=== PATIENT | female | born 1995 | race American Indian/Alaskan Native ===

== ENCOUNTER 2017-02-27 15:53 | Emergency (ER) | payer OTHER ==
[2017-02-27 17:05] VITALS: BP 155/103
--- NOTE | 2017-02-27 20:37 | Emergency Department Report ---
ED Female HPI - General Chief complaint: Urogenital-Female Stated complaint: VAG DISCHARGE / DISCOMFORT/VAG PAIN Time Seen by Provider: 02/27/17 19:57 Source: patient Mode of arrival: Ambulatory Limitations: No Limitations - History of Present Illness Initial comments: PT c/o vaginal lesions x 5 days. PT states three weeks ago she was seen in an ED in [place] for vaginal pain and discharge and she was dx with herpes. PT states she was given medication that helped, acyclovir, but her symptoms came back after she started her cycle. PT states her symptoms are not as bad as previous and she is not having vaginal discharge. PT states she has been recently stressed due to [facility], and recent dx of herpes, and subsequent break up with boyfriend of 8 years. PT states she has tried topical powder, tea bags and ice but no improvement. PT denies any unprotected sex since her dx of herpes. PT states she recently moved to [place] for school and has not established primary care. PT has a hx of DM and states she has her insulin. MD Complaint: possible STD Onset/Timin -: Gradual, days(s) Location: labia Severity: severe Severity scale (0 -10): 10 Quality: sharp, burning Consistency: constant Improves with: none Worsens with: urination, movement, bathing Are you Now?: No Last Menstrual Period: 02/17/17 EDC: 11/24/17 Associated Symptoms: denies other symptoms. denies: vaginal discharge, vaginal bleeding, abdominal pain, nausea/vomiting, fever/chills, dysuria - Related Data Sexually active: Yes Previous Rx's Medication Instructions Recorded Last Taken Type Acyclovir [Zovirax Cap] 800 mg PO 5XD 7 Days 02/27/17 Unknown Rx traMADol [Ultram] 50 mg PO Q6HR PRN #12 tablet 02/27/17 Unknown Rx Allergies Allergy/AdvReac Type Severity Reaction Status Date / Time No Known Allergies Allergy Unverified 02/27/17 16:58 ED Review of Systems ROS: Stated complaint: VAG DISCHARGE / DISCOMFORT/VAG PAIN Other details as noted in HPI Comment: All other systems reviewed and negative Constitutional: denies: chills, fever Endocrine: denies: increased urine Gastrointestinal: denies: abdominal pain, nausea, vomiting Genitourinary: other (painful rash ). denies: dysuria, discharge Skin: lesions ED Past Medical Hx - Past Medical History Previous Medical History?: Yes Hx Diabetes: Yes - Surgical History Past Surgical History?: No - Social History Smoking Status: Never Smoker Substance Use Type: Alcohol, Prescribed - Medications Home Medications: Home Medications Medication Instructions Recorded Confirmed Last Taken Type Acyclovir [Zovirax Cap] 800 mg PO 5XD 7 Days 02/27/17 Unknown Rx traMADol [Ultram] 50 mg PO Q6HR PRN #12 tablet 02/27/17 Unknown Rx ED Physical Exam - General Limitations: No Limitations General appearance: alert, in no apparent distress - Head Head exam: Present: atraumatic, normocephalic, normal inspection - Eye Eye exam: Present: normal appearance, PERRL, EOMI. Absent: conjunctival injection - ENT ENT exam: Present: normal exam, mucous membranes moist, other (with piercing ) - Neck Neck exam: Present: normal inspection, full ROM - Respiratory Respiratory exam: Present: normal lung sounds bilaterally. Absent: respiratory distress, chest wall tenderness - Cardiovascular Cardiovascular Exam: Present: regular rate, normal rhythm - GI/Abdominal GI/Abdominal exam: Present: soft. Absent: tenderness - External exam: Present: lesions, other (vesicles noted on external exam). Absent: erythema, bleeding Speculum exam: Present: other (deferred) - Extremities Exam Extremities exam: Present: normal inspection, full ROM - Back Exam Back exam: Present: normal inspection, full ROM - Neurological Exam Neurological exam: Present: alert, oriented X3 - Psychiatric Psychiatric exam: Present: normal affect, normal mood - Skin Skin exam: Present: warm, dry ED Course Vital Signs 02/27/17 16:59 Temperature 98.6 F Pulse Rate 107 H Respiratory 20 Rate Blood Pressure 155/103 O2 Sat by Pulse 100 Oximetry - Reevaluation(s) Reevaluation #1: 02/27/17 20:46 PT aware of dx. PT aware she will need to take her insulin as prescribed. PT aware she will need to follow up with PCP for bp and bg recheck - Pulse Oximetry Interpretation Digit-Finger Initial Pulse Oximetry Readin Actions Taken: none ED Medical Decision Making - Differential Diagnosis herpes, pelvic pain, hyperglycemia Critical Care Time: No Critical care attestation.: If time is entered above; I have spent that time in minutes in the direct care of this critically ill patient, excluding procedure time. ED Disposition Clinical Impression: Herpes genitalis in women Disposition: DISCHARGED TO HOME OR SELFCARE Is pt being admited?: No Does the pt Need Aspirin: No Condition: Stable Instructions: Genital Herpes Simplex (ED) Additional Instructions: No driving or ETOH after taking Ultram Follow up with PCP in 3-5 days for bp recheck Continue taking your insulin as prescribed Prescriptions: Acyclovir [Zovirax Cap] 800 mg PO 5XD 7 Days traMADol [Ultram] 50 mg PO Q6HR PRN #12 tablet PRN Reason: Pain Referrals: PRIMARY CARE, [Primary Care Provider] - 3-5 Days FLORY MARIE MD [Staff Physician] - 3-5 Days [facility] [Outside] - 3-5 Days [facility] [Outside] - 3-5 Days [facility] [Outside] - 3-5 Days [facility] [Provider Group] - 3-5 Days Forms: Work/School Release Form(ED) Time of Disposition: 20:51
== END 2017-02-27 21:00 | disposition home or self-care (01) ==
LOC: ED 15:53
DX: A60.09 Herpesviral infection of other urogenital tract (principal); E11.9 Type 2 diabetes mellitus without complications
CPT/HCPCS: 82962; 99282

== ENCOUNTER 2017-07-23 16:24 | Emergency (ER) | payer SELFPAY ==
--- NOTE | 2017-07-23 16:52 | Emergency Department Report ---
Chief Complaint: Nausea/Vomiting/Diarrhea Stated Complaint: NAUSEA/VOMIT X 3 WKS Time Seen by Provider: 07/23/17 16:50 - HPI History of Present Illness: patient is a 22 y/o female who with h/o diabetes who presents due to nausea, vomiting x 3 weeks. Patient denies any abdominal pain, fever or chills. - ROS Review of Systems: no fever, no chills, no abdominal pain - Exam Vital Signs: Vital Signs 07/23/17 16:47 Temperature 98.2 F Pulse Rate 76 Respiratory 16 Rate Blood Pressure 138/78 O2 Sat by Pulse 100 Oximetry Physical Exam: alert and oriented x 3, NAD MSE screening note: Focused history and physical exam performed. Due to findings the following was ordered: cbc, CMP, URINALYSIS, UPT, LIPASE ED Disposition for MSE Condition: Stable
[2017-07-23 17:32] LABS: Eosinophils % (Auto) 0.7 % (0.0-4.3)
[2017-07-23 17:36] LABS: Hematocrit 28.1 % (30.3-42.9); Mean Corpuscular Volume 65 fl (79-97); Red Blood Count 4.31 M/mm3 (3.65-5.03); White Blood Count 9.4 K/mm3 (4.5-11.0)
[2017-07-23 17:37] LABS: Mean Corpuscular HGB Conc 29 % (30-34); Mean Corpuscular Hemoglobin 19 pg (28-32); Platelet Count 488 K/mm3 (140-440); Red Cell Distribution Width 21.5 % (13.2-15.2)
[2017-07-23 17:38] LABS: Basophils % (Auto) 0.7 % (0.0-1.8)
[2017-07-23 17:40] LABS: Alanine Aminotransferase 9 units/L (7-56); Albumin 3.8 g/dL (3.9-5); Alkaline Phosphatase 68 units/L (35-129); Anion Gap 17 mmol/L; BUN/Creatinine Ratio 10; Bilirubin,Total < 0.20 mg/dL (0.1-1.2); Blood Urea Nitrogen 6 mg/dL (7-17); Calcium 8.8 mg/dL (8.4-10.2); Carbon Dioxide 28 mmol/L (22-30); Chloride 95.6 mmol/L (98-107); Glucose 278 mg/dL (65-100); Lipase 34 units/L (13-60); Potassium 3.5 mmol/L (3.6-5.0); Sodium 137 mmol/L (137-145); Total Protein 7.8 g/dL (6.3-8.2)
[2017-07-23 18:31] LABS: Bilirubin,Urine NEG (Negative); Blood,Urine NEG (Negative); Ketones,Urine NEG (Negative); Leukocyte Esterase,Urine LG (Negative); Mucus,Urine FEW /HPF; Nitrite,Urine NEG (Negative); Protein,Urine <15 mg/dL mg/dL (Negative); Urobilinogen,Urine < 2.0 mg/dL (<2.0)
[2017-07-23 21:57] VITALS: BP 144/87
[2017-07-23] MEDS ORDERED: K-DUR PO ONE (22:11)
[2017-07-23] MEDS ORDERED: ZOFRAN ODT PO ONE (22:11)
--- NOTE | 2017-07-23 22:15 | Emergency Department Report ---
ED N/V/D HPI - General Chief complaint: Nausea/Vomiting/Diarrhea Stated complaint: NAUSEA/VOMIT X 3 WKS Time Seen by Provider: 07/23/17 22:00 Source: patient Mode of arrival: Ambulatory Limitations: No Limitations - History of Present Illness Initial comments: 22-year-old female past medical history insulin dependent diabetes and no previous surgeries presented to the hospital complaints of intermittent nausea and vomiting for the past 3 weeks. On average patient vomited 3 times a day. She denies any pain, diarrhea, fever, or dysuria. She has been compliant with her insulin. She has a history of anemia and does not take iron tablets currently - Related Data Previous Rx's Medication Instructions Recorded Last Taken Type Acyclovir [Zovirax Cap] 800 mg PO 5XD 7 Days 02/27/17 Unknown Rx traMADol [Ultram] 50 mg PO Q6HR PRN #12 tablet 02/27/17 Unknown Rx Ferrous Sulfate [Feosol 325 MG tab] 325 mg PO QDAY #30 tablet 07/23/17 Unknown Rx Ondansetron [Zofran Odt] 4 mg PO Q8HR PRN #20 tab.rapdis 07/23/17 Unknown Rx Allergies Allergy/AdvReac Type Severity Reaction Status Date / Time No Known Allergies Allergy Unverified 02/27/17 16:58 ED Review of Systems ROS: Stated complaint: NAUSEA/VOMIT X 3 WKS Other details as noted in HPI Comment: All other systems reviewed and negative Other: Constitutional: No fevers chills Eyes: No eye pain visual changes ENT: No ear pain or throat pain Neck: Denies pain Respiratory: Denies cough wheezing shortness of breath Cardiovascular: Denies chest pain, palpitations, syncope GI: as per hpi : Denies dysuria Musculoskeletal: Denies back pain, joint swelling Skin: Denies rash, lesions, erythema Neurologic: Denies headache ED Past Medical Hx - Past Medical History Previous Medical History?: Yes Hx Diabetes: Yes - Surgical History Past Surgical History?: No - Social History Smoking Status: Never Smoker Substance Use Type: Alcohol - Medications Home Medications: Home Medications Medication Instructions Recorded Confirmed Last Taken Type Acyclovir [Zovirax Cap] 800 mg PO 5XD 7 Days 02/27/17 Unknown Rx traMADol [Ultram] 50 mg PO Q6HR PRN #12 tablet 02/27/17 Unknown Rx Ferrous Sulfate [Feosol 325 MG tab] 325 mg PO QDAY #30 tablet 07/23/17 Unknown Rx Ondansetron [Zofran Odt] 4 mg PO Q8HR PRN #20 tab.rapdis 07/23/17 Unknown Rx ED Physical Exam - General Limitations: No Limitations - Other Other exam information: General: No limitations, patient is alert in no acute distress Head exam: Atraumatic, normocephalic Eyes exam: Normal appearance ENT: Moist mucous membrane, normal oropharynx Neck exam: Normal inspection, full range of motion, no meningismus nontender Respiratory exam: Clear to auscultation bilateral, no wheezes, rales, crackles Cardiovascular: Normal rate and rhythm, normal heart sounds Abdomen: Soft, nondistended, and nontender, with normal bowel sounds, no rebound, or guarding Extremity: Full range of motion normal inspection no deformity Back: Normal Inspection, full range of motion, no tenderness Neurologic: Alert, oriented x3, cranial nerves intact, no motor or sensory deficit Psychiatric: normal affect, normal mood Skin: Warm, dry, intact ED Course Vital Signs 07/23/17 07/23/17 07/23/17 16:47 21:56 21:57 Temperature 98.2 F Pulse Rate 76 68 Respiratory 16 18 18 Rate Blood Pressure 138/78 Blood Pressure 144/87 [Right] O2 Sat by Pulse 100 100 100 Oximetry - Reevaluation(s) Reevaluation #1: 07/23/17 22:15 pt feeling better without treatment. tolerated snacks in the ed while waiting to be seen refuses IV treatment agrees to PO zofran and PO KCL refuses accucheck plans to take INsulin dose when she gets home. ED Medical Decision Making - Lab Data Result diagrams: 07/23/17 17:02 07/23/17 17:02 Lab Results 07/23/17 07/23/17 07/23/17 Range/Units 16:57 17:02 17:02 WBC 9.4 (4.5-11.0) K/mm3 RBC 4.31 (3.65-5.03) M/mm3 Hgb 8.0 L (10.1-14.3) gm/dl Hct 28.1 L (30.3-42.9) % MCV 65 L (79-97) fl MCH 19 L (28-32) pg MCHC 29 L (30-34) % RDW 21.5 H (13.2-15.2) % Plt Count 488 H (140-440) K/mm3 Lymph % (Auto) 33.6 (13.4-35.0) % Valley % (Auto) 6.0 (0.0-7.3) % Eos % (Auto) 0.7 (0.0-4.3) % Baso % (Auto) 0.7 (0.0-1.8) % Lymph # 3.2 (1.2-5.4) K/mm3 Valley # 0.6 (0.0-0.8) K/mm3 Eos # 0.1 (0.0-0.4) K/mm3 Baso # 0.1 (0.0-0.1) K/mm3 Seg Neutrophils % 59.0 (40.0-70.0) % Seg Neutrophils # 5.6 (1.8-7.7) K/mm3 Sodium 137 (137-145) mmol/L Potassium 3.5 L (3.6-5.0) mmol/L Chloride 95.6 L (98-107) mmol/L Carbon Dioxide 28 (22-30) mmol/L Anion Gap 17 mmol/L BUN 6 L (7-17) mg/dL Creatinine 0.6 L (0.7-1.2) mg/dL Estimated GFR > 60 ml/min BUN/Creatinine Ratio 10 % Glucose 278 H (65-100) mg/dL Calcium 8.8 (8.4-10.2) mg/dL Total Bilirubin < 0.20 (0.1-1.2) mg/dL AST 10 (5-40) units/L ALT 9 (7-56) units/L Alkaline Phosphatase 68 (35-129) units/L Total Protein 7.8 (6.3-8.2) g/dL Albumin 3.8 L (3.9-5) g/dL Albumin/Globulin Ratio 1.0 % Lipase 34 (13-60) units/L Urine Color Yellow (Yellow) Urine Turbidity Clear (Clear) Urine pH 6.0 (5.0-7.0) Ur Specific Agency 1.016 (1.003-1.030) Urine Protein <15 mg/dl (Negative) mg/dL Urine Glucose (UA) >=500 (Negative) mg/dL Urine Ketones Neg (Negative) mg/dL Urine Blood Neg (Negative) Urine Nitrite Neg (Negative) Ur Reducing Substances Not Reportable Urine Bilirubin Neg (Negative) Urine Ictotest Not Reportable Urine Urobilinogen < 2.0 (<2.0) mg/dL Ur Leukocyte Esterase Lg (Negative) Urine WBC (Auto) 5.0 (0.0-6.0) /HPF Urine RBC (Auto) 6.0 (0.0-6.0) /HPF U Epithel Cells (Auto) 6.0 (0-13.0) /HPF Urine Mucus Few /HPF Urine HCG, Qual Negative (Negative) - Medical Decision Making pt feeling better without treatment. tolerated snacks in the ed while waiting to be seen refuses IV treatment agrees to PO zofran and PO KCL refuses accucheck plans to take INsulin dose when she gets home. zofran, iron tablets for anemia, and f/u will be recommended. - Differential Diagnosis DKA, gastritis, pancreatitis, pericolic, gastroparesis Critical Care Time: No Critical care attestation.: If time is entered above; I have spent that time in minutes in the direct care of this critically ill patient, excluding procedure time. ED Disposition Clinical Impression: Intermittent vomiting, Microcytic anemia, Insulin dependent diabetes mellitus, Hypokalemia Disposition: DC-01 TO HOME OR SELFCARE Is pt being admited?: No Does the pt Need Aspirin: No Condition: Stable Instructions: Diabetes Mellitus Type 1 in Adults (ED), Acute Nausea and Vomiting (ED), Hypokalemia (ED), Anemia (ED) Additional Instructions: Take medications as prescribed. Follow-up with your primary care doctor and the GI doctor provided. Return is symptoms worsen. Iron tablets may cause constipation take stool softeners as needed. Prescriptions: Ferrous Sulfate [Feosol 325 MG tab] 325 mg PO QDAY #30 tablet Ondansetron [Zofran Odt] 4 mg PO Q8HR PRN #20 tab.rapdis PRN Reason: Nausea And Vomiting Referrals: PRIMARY CARE, [Primary Care Provider] - 3-5 Days SUZANNE JUNG MD [Staff Physician] - 3-5 Days Time of Disposition: 22:12
== END 2017-07-23 22:32 | disposition home or self-care (01) ==
LOC: ED 16:24
DX: D50.9 Iron deficiency anemia, unspecified (principal); E87.6 Hypokalemia; E11.8 Type 2 diabetes mellitus with unspecified complications; Z79.4 Long term (current) use of insulin
CPT/HCPCS: 36415; 80053; 81001; 81025; 83690; 85025; 99283; Q0162

== ENCOUNTER 2019-03-23 14:19 | Inpatient (IN) | payer OTHER ==
[2019-03-23] MEDS ORDERED: MINERAL OIL PO PRN ×2 (15:40→16:54)
[2019-03-23] MEDS ORDERED: XYLOCAINE 2% INFILTRATI ONE ×2 (15:40→16:54)
[2019-03-23 15:59] LABS: Hematocrit 34.2 % (30.3-42.9); Mean Corpuscular HGB Conc 32 % (30-34); Mean Corpuscular Volume 85 fl (79-97); Platelet Count 292 K/mm3 (140-440); Red Blood Count 4.01 M/mm3 (3.65-5.03); Red Cell Distribution Width 18.6 % (13.2-15.2)
[2019-03-23] MEDS ORDERED: LACTATED RINGERS 1,000 ML IV SCH (16:00)
[2019-03-23] MEDS ORDERED: ZOFRAN IV PRN (16:54)
[2019-03-23] MEDS ORDERED: BRETHINE SUB-Q PRN (16:54)
[2019-03-23] MEDS ORDERED: PHENERGAN PO PRN (16:54)
[2019-03-23] MEDS ORDERED: STADOL IV PRN (16:54)
[2019-03-23] MEDS ORDERED: SUBLIMAZE IV PRN (16:54)
[2019-03-23] MEDS ORDERED: BRETHINE IVP PRN (16:54)
--- NOTE | 2019-03-23 16:54 | History and Physical Report ---
History of Present Illness Date of examination: 03/23/19 Date of admission: 03/23/19 14:19 Chief complaint: via [facility] recommendations History of present illness: 24 yo EDC 05/07/19 at 33+ weeks admitted for absent End diastolic flow. She is a patietn with DM type 1 on insulin regimen. She also has cHTN on no meds. She has HSV2 aware. She alos has IUGR 5% followed by [facility]. Past History Past Medical History: no pertinent history Past Surgical History: no surgical history Family/Genetic History: none Social history: single. denies: smoking, alcohol abuse, prescription drug abuse - Obstetrical History Expected Date of Delivery: 05/07/19 Actual Gestation: 33 Week(s) 4 Day(s) : 1 Para: 0 Hx # Term Pregnancies: 0 Number of Pregnancies: 0 Spontaneous Abortions: 0 Induced : 0 Number of Living Children: 0 Medications and Allergies Allergies Allergy/AdvReac Type Severity Reaction Status Date / Time No Known Allergies Allergy Unverified 02/27/17 16:58 Home Medications Medication Instructions Recorded Confirmed Last Taken Type Acyclovir [Zovirax Cap] 800 mg PO 5XD 7 Days cap 02/27/17 Unknown Rx traMADol [Ultram] 50 mg PO Q6HR PRN #12 tablet 02/27/17 Unknown Rx Ferrous Sulfate [Feosol 325 MG tab] 325 mg PO QDAY #30 tablet 07/23/17 Unknown Rx Ondansetron [Zofran Odt] 4 mg PO Q8HR PRN #20 tab.rapdis 07/23/17 Unknown Rx Active Meds: Active Medications Ephedrine Sulfate (Ephedrine Sulfate) 10 mg IV Q2M PRN PRN Reason: Hypotension Lactated Ringer's (Lactated Ringers) 1,000 mls @ 125 mls/hr IV DIRECT WILNER Mineral Oil (Mineral Oil) 30 ml PO QHS PRN PRN Reason: Constipation Review of Systems All systems: negative - Vital Signs Vital signs: Vital Signs Pulse BP 98 H 135/99 03/23/19 14:53 03/23/19 14:53 Temp Pulse Resp BP Pulse Ox 97.0 F L 98 H 132/93 03/23/19 15:39 03/23/19 16:13 03/23/19 16:13 - Physical Exam Breasts: Positive: normal Cardiovascular: Regular rate, Normal S1 Lungs: Positive: Clear to auscultation, Normal air movement Abdomen: Positive: normal appearance, soft, normal bowel sounds. Negative: distention, tenderness, guarding Genitourinary (Female): Positive: normal external genitalia, normal perenium Vulva: both: normal Vagina: Positive: normal moisture Uterus: Positive: normal size, normal contour Anus/Rectum: Positive: normal perianal skin Extremities: Positive: normal. Negative: tenderness Deep Tendon Reflex Grade: Normal +2 - Obstetrical FHR: category 1 Uterine Contraction Pattern: Absent Uterine Tone Measurement Phase: Resting Results Result Diagrams: 03/23/19 15:42 Abnormal lab results 03/23/19 Range/Units 15:42 RDW 18.6 H (13.2-15.2) % All other labs normal. Ultrasound: report reviewed Assessment and Plan A/P 33+4 weeks IUGR DM type 1 cHTN No end diastolic flow GBS + Admit , IVF, labs Betamethasone x1 now Mag 2g for neuro protection continuous monitor Sliding scale
[2019-03-23] MEDS ORDERED: PITOCin/NS 20 UNIT/1000ML DRIP 20 UNITS/1,000 ML BAG IV SCH (17:00)
[2019-03-23] MEDS ORDERED: PITOCin/NS 30 UNIT/500ML 30 UNITS/500 ML BAG IV SCH (17:00)
[2019-03-23] MEDS ORDERED: D50W (25GM) Syringe IV PRN (17:05)
[2019-03-23] MEDS ORDERED: MAGNESIUM SULFATE 1 GM in NACL 0.9% 50 ML IV ONE (17:10)
[2019-03-23] MEDS ORDERED: CELESTONE SOLUSPAN IM SCH (18:00)
[2019-03-23] MEDS: LACTATED RINGERS 1,000 ML IV SCH (18:10)
[2019-03-23] MEDS ORDERED: MAGNESIUM SULFATE 4GM/100ML 4 GM/100 ML BAG IV ONE (18:10)
[2019-03-23] MEDS ORDERED: MAGNESIUM SULFATE 40GM/1000ML 40 GM/1,000 ML BAG IV ONE (18:30)
--- NOTE | 2019-03-23 19:30 | Consultation ---
Consult Note - Parent Education I met with parent(s) and discussed the following:: Need for NICU admission, Poss ible need for intubation and surfactant or other resp support, Temperature regulation, Head ultrasounds to evaluate IVH, Possible need for IV fluids/TPN and IV antibiotics, Possible need for umbilical lines, Importance of providing breast milk & encouraged pumping aft delivery, Donor breast milk if baby meets criteria after , Slow feeding advancement and monitoring of tolerance. NG/OG feeds, Need to monitor for jaundice Parent(s) demonstrated understanding of all the information:: Yes Additional Comment: Mother and father in room. Verbalized understanding, no questions at this time. Mother appears very uncomfortable with cold symptoms. Assessment and Plan - Plan Plan: Agree with Mag & steroids Will attend delivery Please call NICU with questions
[2019-03-23] MEDS: HumuLIN R SUB-Q SCH (22:00)
[2019-03-24] MEDS: LACTATED RINGERS 1,000 ML IV SCH ×2 (06:33→19:43)
--- NOTE | 2019-03-24 08:07 | Consultation ---
Past History Past Medical History: no pertinent history Past Surgical History: no surgical history Family/Genetic History: none - Obstetrical History : 1 Medications and Allergies Allergies Allergy/AdvReac Type Severity Reaction Status Date / Time No Known Allergies Allergy Unverified 02/27/17 16:58 Home Medications Medication Instructions Recorded Confirmed Last Taken Type Acyclovir [Zovirax Cap] 800 mg PO 5XD 7 Days cap 02/27/17 Unknown Rx traMADol [Ultram] 50 mg PO Q6HR PRN #12 tablet 02/27/17 Unknown Rx Ferrous Sulfate [Feosol 325 MG tab] 325 mg PO QDAY #30 tablet 07/23/17 Unknown Rx Ondansetron [Zofran Odt] 4 mg PO Q8HR PRN #20 tab.rapdis 07/23/17 Unknown Rx Active Meds: Active Medications Butorphanol Tartrate (Stadol) 2 mg IV Q2H PRN PRN Reason: Pain , Severe (7-10) Dextrose (D50w (25gm) Syringe) 50 ml IV PRN PRN PRN Reason: Hypoglycemia Ephedrine Sulfate (Ephedrine Sulfate) 10 mg IV Q2M PRN PRN Reason: Hypotension Fentanyl (Sublimaze) 100 mcg IV Q2H PRN PRN Reason: Labor Pain Oxytocin/Sodium Chloride (Pitocin/Ns 20 Unit/1000ml Drip) 20 units in 1,000 mls @ 125 mls/hr IV DIRECT WILNER Oxytocin/Sodium Chloride (Pitocin/Ns 30 Unit/500ml) 30 units in 500 mls @ 1 mls/hr IV TITR WILNER; Protocol Lactated Ringer's (Lactated Ringers) 1,000 mls @ 125 mls/hr IV DIRECT WILNER Last Admin: 03/24/19 06:33 Dose: 125 mls/hr Documented by: Magnesium Sulfate (Magnesium Sulfate 40gm/1000ml) 40 gm in 1,000 mls @ 52 mls/hr IV ONCE ONE Stop: 03/24/19 13:43 Last Admin: 03/23/19 18:51 Dose: 52 mls/hr Documented by: Insulin Human NPH (Humulin N) 0 unit SUB-Q BIDDIAB WILNER Insulin Human Regular (Humulin R) 0 units SUB-Q QHS WILNER; Protocol Last Admin: 03/23/19 22:00 Dose: 20 units Documented by: Insulin Human Regular (Humulin R) 24 units SUB-Q QPMDIAB WILNER Insulin Human Regular (Humulin R) 18 units SUB-Q QDDIAB WILNER Mineral Oil (Mineral Oil) 30 ml PO QHS PRN PRN Reason: Constipation Ondansetron HCl (Zofran) 4 mg IV Q8H PRN PRN Reason: Nausea And Vomiting Promethazine HCl (Phenergan) 25 mg PO Q6H PRN PRN Reason: Nausea And Vomiting Terbutaline Sulfate (Brethine) 0.25 mg SUB-Q ONCE PRN PRN Reason: Hyperstimulation/Hypertonicity Terbutaline Sulfate (Brethine) 0.25 mg IVP ONCE PRN PRN Reason: Hyperstimulation/Hypertonicity - Vital Signs Vital signs: Vital Signs Pulse BP 98 H 135/99 03/23/19 14:53 03/23/19 14:53 Temp Pulse Resp BP Pulse Ox 96.6 F L 100 H 18 147/102 99 03/23/19 19:59 03/24/19 08:04 03/23/19 19:59 03/24/19 07:42 03/24/19 08:04 Results Result Diagrams: 03/23/19 15:42 Abnormal lab results 03/23/19 03/23/19 03/23/19 Range/Units 15:42 18:01 21:15 RDW 18.6 H (13.2-15.2) % POC Glucose 183 H 305 H (70-105) Magnesium (1.7-2.3) mg/dL 03/24/19 03/24/19 03/24/19 Range/Units 03:12 03:17 06:38 RDW (13.2-15.2) % POC Glucose 211 H 237 H (70-105) Magnesium 4.50 H (1.7-2.3) mg/dL All other labs normal. Assessment and Plan AMFM Pt seen Full consult to follow
--- NOTE | 2019-03-24 08:46 | Progress Note ---
Assessment and Plan - Patient Problems (1) IUGR (intrauterine growth restriction) Current Visit: Yes Status: Acute Plan to address problem: patient is scheduled for induction continue moderate control of glucose complete steroid series (2) Diabetes in Current Visit: Yes Status: Acute Subjective - Subjective Date of service: 03/24/19 Interval history: 24y/o @ 33+ weeks admitted for absent end diastolic flow and DM I. The patient is scheduled for induction this week. She is currently without complaints. Currently receiving steroids. Patient reports: no new complaints, no loss of fluid Objective - Vital Signs Vital Signs: Vital Signs - 12hr 03/23/19 03/23/19 03/23/19 21:10 21:13 21:42 Pulse Rate 89 90 93 H Blood Pressure 141/97 142/98 141/95 O2 Sat by Pulse Oximetry 03/23/19 03/23/19 03/23/19 22:12 22:42 23:12 Pulse Rate 96 H 96 H 87 Blood Pressure 162/106 125/62 137/81 O2 Sat by Pulse Oximetry 03/23/19 03/23/19 03/23/19 23:42 23:44 23:49 Pulse Rate 86 91 H 92 H Blood Pressure 128/76 O2 Sat by Pulse 99 98 Oximetry 03/23/19 03/23/19 03/24/19 23:54 23:59 00:04 Pulse Rate 88 86 88 Blood Pressure O2 Sat by Pulse 98 98 97 Oximetry 03/24/19 03/24/19 03/24/19 00:09 00:12 00:14 Pulse Rate 84 88 87 Blood Pressure 153/86 O2 Sat by Pulse 98 98 Oximetry 03/24/19 03/24/19 03/24/19 00:19 00:24 00:29 Pulse Rate 85 90 86 Blood Pressure O2 Sat by Pulse 98 98 98 Oximetry 03/24/19 03/24/19 03/24/19 00:34 00:39 00:42 Pulse Rate 93 H 93 H 90 Blood Pressure 135/83 O2 Sat by Pulse 98 97 Oximetry 03/24/19 03/24/19 03/24/19 00:44 00:49 00:54 Pulse Rate 94 H 94 H 94 H Blood Pressure O2 Sat by Pulse 98 98 98 Oximetry 03/24/19 03/24/19 03/24/19 00:59 01:04 01:09 Pulse Rate 88 88 91 H Blood Pressure O2 Sat by Pulse 97 96 98 Oximetry 03/24/19 03/24/19 03/24/19 01:12 01:14 01:19 Pulse Rate 92 H 92 H 89 Blood Pressure 153/96 O2 Sat by Pulse 97 98 Oximetry 03/24/19 03/24/19 03/24/19 01:24 01:29 01:34 Pulse Rate 94 H 93 H 99 H Blood Pressure O2 Sat by Pulse 98 98 99 Oximetry 03/24/19 03/24/19 03/24/19 01:39 01:42 01:44 Pulse Rate 96 H 97 H 90 Blood Pressure 139/88 O2 Sat by Pulse 98 99 Oximetry 03/24/19 03/24/19 03/24/19 01:49 01:54 01:59 Pulse Rate 91 H 89 86 Blood Pressure O2 Sat by Pulse 99 99 99 Oximetry 03/24/19 03/24/19 03/24/19 02:04 02:09 02:14 Pulse Rate 86 84 82 Blood Pressure O2 Sat by Pulse 98 98 100 Oximetry 03/24/19 03/24/19 03/24/19 02:19 02:24 02:29 Pulse Rate 86 85 86 Blood Pressure O2 Sat by Pulse 97 99 99 Oximetry 03/24/19 03/24/19 03/24/19 02:34 02:35 02:39 Pulse Rate 89 86 87 Blood Pressure O2 Sat by Pulse 99 93 92 Oximetry 03/24/19 03/24/19 03/24/19 02:42 02:44 02:47 Pulse Rate 90 85 85 Blood Pressure 141/73 O2 Sat by Pulse 94 96 93 Oximetry 03/24/19 03/24/19 03/24/19 02:49 02:53 02:54 Pulse Rate 89 86 87 Blood Pressure O2 Sat by Pulse 94 94 96 Oximetry 03/24/19 03/24/19 03/24/19 02:59 03:04 03:09 Pulse Rate 90 90 96 H Blood Pressure O2 Sat by Pulse 97 97 97 Oximetry 03/24/19 03/24/19 03/24/19 03:14 03:19 03:24 Pulse Rate 111 H 116 H 99 H Blood Pressure O2 Sat by Pulse 97 97 100 Oximetry 03/24/19 03/24/19 03/24/19 03:29 03:34 03:39 Pulse Rate 102 H 92 H 97 H Blood Pressure O2 Sat by Pulse 98 97 98 Oximetry 03/24/19 03/24/19 03/24/19 03:43 03:44 03:49 Pulse Rate 90 95 H 91 H Blood Pressure 140/102 O2 Sat by Pulse 94 97 97 Oximetry 03/24/19 03/24/19 03/24/19 03:54 03:59 04:04 Pulse Rate 89 90 93 H Blood Pressure O2 Sat by Pulse 97 97 97 Oximetry 03/24/19 03/24/19 03/24/19 04:09 04:14 04:19 Pulse Rate 94 H 97 H 99 H Blood Pressure O2 Sat by Pulse 97 97 97 Oximetry 03/24/19 03/24/19 03/24/19 04:24 04:29 04:34 Pulse Rate 98 H 98 H 98 H Blood Pressure O2 Sat by Pulse 96 97 96 Oximetry 03/24/19 03/24/19 03/24/19 04:39 04:42 04:44 Pulse Rate 102 H 100 H 89 Blood Pressure 138/100 O2 Sat by Pulse 97 97 Oximetry 03/24/19 03/24/19 03/24/19 04:49 04:52 04:54 Pulse Rate 91 H 85 96 H Blood Pressure O2 Sat by Pulse 97 94 97 Oximetry 03/24/19 03/24/19 03/24/19 04:59 05:00 05:04 Pulse Rate 94 H 94 H 93 H Blood Pressure O2 Sat by Pulse 97 94 97 Oximetry 03/24/19 03/24/19 03/24/19 05:09 05:14 05:19 Pulse Rate 94 H 95 H 93 H Blood Pressure O2 Sat by Pulse 97 97 98 Oximetry 03/24/19 03/24/19 03/24/19 05:24 05:29 05:34 Pulse Rate 95 H 96 H 97 H Blood Pressure O2 Sat by Pulse 95 96 96 Oximetry 03/24/19 03/24/19 03/24/19 05:39 05:42 05:44 Pulse Rate 98 H 102 H 112 H Blood Pressure 146/98 O2 Sat by Pulse 97 97 Oximetry 03/24/19 03/24/19 03/24/19 05:49 05:54 05:59 Pulse Rate 91 H 102 H 92 H Blood Pressure O2 Sat by Pulse 96 96 98 Oximetry 03/24/19 03/24/1903/24/19 06:04 06:09 06:14 Pulse Rate 96 H 96 H 101 H Blood Pressure O2 Sat by Pulse 99 98 99 Oximetry 03/24/19 03/24/19 03/24/19 06:19 06:24 06:29 Pulse Rate 97 H 91 H 98 H Blood Pressure O2 Sat by Pulse 98 97 98 Oximetry 03/24/19 03/24/19 03/24/19 06:34 06:39 06:42 Pulse Rate 96 H 101 H 98 H Blood Pressure 132/90 O2 Sat by Pulse 98 100 Oximetry 03/24/19 03/24/19 03/24/19 06:44 06:49 06:54 Pulse Rate 104 H 90 89 Blood Pressure O2 Sat by Pulse 97 99 98 Oximetry 03/24/19 03/24/19 03/24/19 06:59 07:04 07:09 Pulse Rate 93 H 87 91 H Blood Pressure O2 Sat by Pulse 97 97 98 Oximetry 03/24/19 03/24/19 03/24/19 07:14 07:18 07:19 Pulse Rate 96 H 104 H 93 H Blood Pressure O2 Sat by Pulse 99 93 98 Oximetry 03/24/19 03/24/19 03/24/19 07:24 07:29 07:34 Pulse Rate 89 92 H 90 Blood Pressure O2 Sat by Pulse 98 98 100 Oximetry 03/24/19 03/24/19 03/24/19 07:39 07:42 07:44 Pulse Rate 94 H 94 H 92 H Blood Pressure 147/102 O2 Sat by Pulse 99 97 Oximetry 03/24/19 03/24/19 03/24/19 07:45 07:49 07:52 Pulse Rate 89 93 H 94 H Blood Pressure O2 Sat by Pulse 88 97 92 Oximetry 03/24/19 03/24/19 03/24/19 07:54 07:59 08:04 Pulse Rate 95 H 101 H 100 H Blood Pressure O2 Sat by Pulse 98 87 99 Oximetry 03/24/19 03/24/19 03/24/19 08:09 08:14 08:16 Pulse Rate 102 H 106 H 55 L Blood Pressure O2 Sat by Pulse 99 99 26 L Oximetry 03/24/19 03/24/19 03/24/19 08:19 08:24 08:29 Pulse Rate 100 H 100 H 97 H Blood Pressure O2 Sat by Pulse 85 100 99 Oximetry 03/24/19 03/24/19 03/24/19 08:34 08:39 08:42 Pulse Rate 97 H 94 H 90 Blood Pressure 125/79 O2 Sat by Pulse 99 99 Oximetry - Labs Labs: Abnormal Labs 03/23/19 03/23/19 03/23/19 15:42 18:01 21:15 RDW 18.6 H POC Glucose 183 H 305 H Magnesium 03/24/19 03/24/19 03/24/19 03:12 03:17 06:38 RDW POC Glucose 211 H 237 H Magnesium 4.50 H Laboratory Results - last 24 hr 03/23/19 03/23/19 03/23/19 15:42 15:42 18:01 WBC 8.8 RBC 4.01 Hgb 11.0 Hct 34.2 MCV 85 MCH 28 MCHC 32 RDW 18.6 H Plt Count 292 POC Glucose 183 H Magnesium Blood Type O POSITIVE Antibody Screen Negative 03/23/19 03/24/19 03/24/19 21:15 03:12 03:17 WBC RBC Hgb Hct MCV MCH MCHC RDW Plt Count POC Glucose 305 H 211 H Magnesium 4.50 H Blood Type Antibody Screen 03/24/19 06:38 WBC RBC Hgb Hct MCV MCH MCHC RDW Plt Count POC Glucose 237 H Magnesium Blood Type Antibody Screen
[2019-03-24] MEDS: HumuLIN R SUB-Q SCH ×4 (08:52→17:07)
[2019-03-24 10:20] LABS: Albumin 3.2 g/dL (3.9-5); BUN/Creatinine Ratio 13; Blood Urea Nitrogen 5 mg/dL (7-17); Hemolysis Index 103
[2019-03-24] MEDS ORDERED: ROBITUSSIN PO ONE (11:01)
[2019-03-24 16:03] LABS: Alanine Aminotransferase 15 units/L (7-56)
[2019-03-24] MEDS ORDERED: CELESTONE SOLUSPAN IM ONE (18:55)
[2019-03-24] MEDS: ROBITUSSIN PO PRN (19:43)
[2019-03-25] MEDS: LACTATED RINGERS 1,000 ML IV SCH ×2 (06:07→13:43)
[2019-03-25] MEDS: ROBITUSSIN PO PRN ×3 (06:10→21:19)
[2019-03-25] MEDS: HumuLIN R SUB-Q SCH ×5 (08:19→22:01)
--- NOTE | 2019-03-25 09:00 | Progress Note ---
Assessment and Plan A/P 33+6 weeks IUGR DM type 1 cHTN No end diastolic flow GBS + Betamethasone x 2 s/p Mag 2g for neuro protection continuous monitor Sliding scale IOL at 34 weeks Subjective - Subjective Date of service: 03/25/19 Principal diagnosis: 33+weeks, no end diastolic flow Interval history: 24 yo EDC 05/07/19 at 33+ weeks admitted for absent End diastolic flow. She is a patietn with DM type 1 on insulin regimen. She also has cHTN on no meds. She has HSV2 aware. She alos has IUGR 5% followed by [facility]. Patient reports: no new complaints, no loss of fluid Objective - Vital Signs Vital Signs: Vital Signs - 12hr 03/24/19 03/24/19 03/24/19 22:53 22:58 23:03 Temperature Pulse Rate 99 H 92 H 95 H Respiratory Rate Blood Pressure Blood Pressure [Left] O2 Sat by Pulse 98 99 99 Oximetry 03/24/19 03/24/19 03/24/19 23:08 23:11 23:13 Temperature Pulse Rate 93 H 110 H Respiratory Rate Blood Pressure 126/68 Blood Pressure [Left] O2 Sat by Pulse 96 82 L Oximetry 03/24/19 03/24/19 03/24/19 23:18 23:23 23:28 Temperature Pulse Rate 94 H 99 H 86 Respiratory Rate Blood Pressure Blood Pressure [Left] O2 Sat by Pulse 98 99 97 Oximetry 03/24/19 03/24/19 03/24/19 23:33 23:34 23:39 Temperature Pulse Rate 98 H 97 H 96 H Respiratory Rate Blood Pressure Blood Pressure [Left] O2 Sat by Pulse 94 98 99 Oximetry 03/24/19 03/24/19 03/24/19 23:44 23:45 23:49 Temperature Pulse Rate 93 H 95 H 86 Respiratory Rate Blood Pressure Blood Pressure [Left] O2 Sat by Pulse 98 79 L 98 Oximetry 03/24/19 03/24/19 03/25/19 23:54 23:59 00:04 Temperature Pulse Rate 90 88 81 Respiratory Rate Blood Pressure Blood Pressure [Left] O2 Sat by Pulse 99 99 98 Oximetry 03/25/19 03/25/19 03/25/19 00:09 00:11 00:14 Temperature Pulse Rate 95 H 94 H 97 H Respiratory Rate Blood Pressure 142/97 Blood Pressure [Left] O2 Sat by Pulse 99 99 Oximetry 03/25/19 03/25/19 03/25/19 00:19 00:24 00:29 Temperature Pulse Rate 93 H 82 79 Respiratory Rate Blood Pressure Blood Pressure [Left] O2 Sat by Pulse 99 93 100 Oximetry 03/25/19 03/25/19 03/25/19 00:30 00:34 00:35 Temperature Pulse Rate 85 96 H Respiratory Rate Blood Pressure Blood Pressure [Left] O2 Sat by Pulse 57 L 100 93 Oximetry 03/25/19 03/25/19 03/25/19 00:39 00:44 00:49 Temperature Pulse Rate 89 93 H 93 H Respiratory Rate Blood Pressure Blood Pressure [Left] O2 Sat by Pulse 97 97 98 Oximetry 03/25/19 03/25/19 03/25/19 00:54 00:59 01:04 Temperature Pulse Rate 90 93 H 94 H Respiratory Rate Blood Pressure Blood Pressure [Left] O2 Sat by Pulse 98 98 97 Oximetry 03/25/19 03/25/19 03/25/19 01:09 01:11 01:14 Temperature Pulse Rate 89 93 H 91 H Respiratory Rate Blood Pressure 132/83 Blood Pressure [Left] O2 Sat by Pulse 96 99 Oximetry 03/25/19 03/25/19 03/25/19 01:19 01:24 01:29 Temperature Pulse Rate 90 92 H 91 H Respiratory Rate Blood Pressure Blood Pressure [Left] O2 Sat by Pulse 98 98 98 Oximetry 03/25/19 03/25/19 03/25/19 01:34 01:39 01:44 Temperature Pulse Rate 91 H 91 H 91 H Respiratory Rate Blood Pressure Blood Pressure [Left] O2 Sat by Pulse 99 98 98 Oximetry 03/25/19 03/25/19 03/25/19 01:49 01:54 01:59 Temperature Pulse Rate 87 93 H 92 H Respiratory Rate Blood Pressure Blood Pressure [Left] O2 Sat by Pulse 97 94 97 Oximetry 03/25/19 03/25/19 03/25/19 02:02 02:04 02:09 Temperature Pulse Rate 89 91 H 92 H Respiratory Rate Blood Pressure Blood Pressure [Left] O2 Sat by Pulse 94 98 96 Oximetry 03/25/19 03/25/19 03/25/19 02:11 02:14 02:25 Temperature Pulse Rate 103 H 80 114 H Respiratory Rate Blood Pressure 144/102 Blood Pressure [Left] O2 Sat by Pulse 99 99 Oximetry 03/25/19 03/25/19 03/25/19 02:30 02:35 02:40 Temperature Pulse Rate 108 H 86 93 H Respiratory Rate Blood Pressure Blood Pressure [Left] O2 Sat by Pulse 100 99 69 L Oximetry 03/25/19 03/25/19 03/25/19 02:45 02:50 02:55 Temperature Pulse Rate 92 H 88 83 Respiratory Rate Blood Pressure Blood Pressure [Left] O2 Sat by Pulse 100 100 100 Oximetry 03/25/19 03/25/19 03/25/19 03:00 03:05 03:10 Temperature Pulse Rate 91 H 94 H 81 Respiratory Rate Blood Pressure 131/85 Blood Pressure [Left] O2 Sat by Pulse 94 99 99 Oximetry 03/25/19 03/25/19 03/25/19 03:15 03:20 03:21 Temperature Pulse Rate 91 H 87 89 Respiratory Rate Blood Pressure Blood Pressure [Left] O2 Sat by Pulse 99 99 91 Oximetry 03/25/19 03/25/19 03/25/19 03:25 03:30 03:35 Temperature Pulse Rate 88 101 H 79 Respiratory Rate Blood Pressure Blood Pressure [Left] O2 Sat by Pulse 99 82 L 99 Oximetry 03/25/19 03/25/19 03/25/19 03:40 03:45 03:50 Temperature Pulse Rate 75 82 83 Respiratory Rate Blood Pressure Blood Pressure [Left] O2 Sat by Pulse 99 98 98 Oximetry 03/25/19 03/25/19 03/25/19 03:55 04:00 04:05 Temperature Pulse Rate 82 82 75 Respiratory Rate Blood Pressure Blood Pressure [Left] O2 Sat by Pulse 97 99 96 Oximetry 03/25/19 03/25/19 03/25/19 04:10 04:15 04:20 Temperature Pulse Rate 83 80 82 Respiratory Rate Blood Pressure 132/87 Blood Pressure [Left] O2 Sat by Pulse 99 98 99 Oximetry 03/25/19 03/25/19 03/25/19 04:25 04:30 04:35 Temperature Pulse Rate 81 76 83 Respiratory Rate Blood Pressure Blood Pressure [Left] O2 Sat by Pulse 98 97 97 Oximetry 03/25/19 03/25/19 03/25/19 04:40 04:45 04:50 Temperature Pulse Rate 83 81 81 Respiratory Rate Blood Pressure Blood Pressure [Left] O2 Sat by Pulse 97 97 98 Oximetry 03/25/19 03/25/19 03/25/19 04:55 05:00 05:05 Temperature Pulse Rate 72 91 H 83 Respiratory Rate Blood Pressure Blood Pressure [Left] O2 Sat by Pulse 97 98 98 Oximetry 03/25/19 03/25/19 03/25/19 05:10 05:15 05:20 Temperature Pulse Rate 73 82 69 Respiratory Rate Blood Pressure 143/80 Blood Pressure [Left] O2 Sat by Pulse 99 99 97 Oximetry 03/25/19 03/25/19 03/25/19 05:25 05:30 05:35 Temperature Pulse Rate 76 78 76 Respiratory Rate Blood Pressure Blood Pressure [Left] O2 Sat by Pulse 100 99 99 Oximetry 03/25/19 03/25/19 03/25/19 05:40 05:45 05:50 Temperature Pulse Rate 91 H 74 78 Respiratory Rate Blood Pressure Blood Pressure [Left] O2 Sat by Pulse 99 99 100 Oximetry 03/25/19 03/25/19 03/25/19 05:55 06:07 06:10 Temperature Pulse Rate 82 85 78 Respiratory Rate Blood Pressure 128/79 Blood Pressure [Left] O2 Sat by Pulse 93 100 Oximetry 03/25/19 03/25/19 03/25/19 06:12 06:17 06:22 Temperature Pulse Rate 75 73 78 Respiratory Rate Blood Pressure Blood Pressure [Left] O2 Sat by Pulse 100 100 100 Oximetry 03/25/19 03/25/19 03/25/19 06:27 06:32 06:37 Temperature Pulse Rate 78 71 84 Respiratory Rate Blood Pressure Blood Pressure [Left] O2 Sat by Pulse 99 99 99 Oximetry 03/25/19 03/25/19 03/25/19 06:42 06:47 06:52 Temperature Pulse Rate 80 74 82 Respiratory Rate Blood Pressure Blood Pressure [Left] O2 Sat by Pulse 99 100 100 Oximetry 03/25/19 03/25/19 03/25/19 06:57 06:58 07:02 Temperature Pulse Rate 86 76 Respiratory Rate Blood Pressure Blood Pressure [Left] O2 Sat by Pulse 96 86 98 Oximetry 03/25/19 03/25/19 03/25/19 07:06 07:07 07:10 Temperature Pulse Rate 89 85 72 Respiratory Rate Blood Pressure 137/80 Blood Pressure [Left] O2 Sat by Pulse 78 L 70 L Oximetry 03/25/19 03/25/19 03/25/19 07:11 07:12 07:17 Temperature Pulse Rate 70 72 82 Respiratory Rate Blood Pressure Blood Pressure [Left] O2 Sat by Pulse 83 L 90 99 Oximetry 03/25/19 03/25/19 03/25/19 07:18 07:22 07:25 Temperature Pulse Rate 81 72 80 Respiratory Rate Blood Pressure Blood Pressure [Left] O2 Sat by Pulse 90 100 91 Oximetry 03/25/19 03/25/19 03/25/19 07:27 07:32 07:36 Temperature Pulse Rate 73 68 77 Respiratory Rate Blood Pressure Blood Pressure [Left] O2 Sat by Pulse 100 100 55 L Oximetry 03/25/19 03/25/19 03/25/19 07:37 07:42 07:47 Temperature Pulse Rate 79 73 71 Respiratory Rate Blood Pressure Blood Pressure [Left] O2 Sat by Pulse 81 L 100 99 Oximetry 03/25/19 03/25/19 03/25/19 07:52 07:57 08:02 Temperature Pulse Rate 73 72 82 Respiratory Rate Blood Pressure Blood Pressure [Left] O2 Sat by Pulse 87 98 75 L Oximetry 03/25/19 03/25/19 03/25/19 08:07 08:11 08:12 Temperature 96.3 F L Pulse Rate 76 90 81 Respiratory 20 Rate Blood Pressure 161/94 159/96 Blood Pressure 159/96 [Left] O2 Sat by Pulse 100 100 Oximetry 03/25/19 03/25/19 03/25/19 08:13 08:18 08:23 Temperature Pulse Rate 88 76 74 Respiratory Rate Blood Pressure Blood Pressure [Left] O2 Sat by Pulse 100 100 98 Oximetry 03/25/19 03/25/19 03/25/19 08:28 08:33 08:38 Temperature Pulse Rate 72 80 77 Respiratory Rate Blood Pressure Blood Pressure [Left] O2 Sat by Pulse 100 100 99 Oximetry - Exam Breasts: normal Cardiovascular: Regular rate, Normal S1 Lungs: Clear to auscultation, Normal air movement Abdomen: Present: normal appearance, soft, normal bowel sounds. Absent: distention, tenderness, guarding Uterus: Present: normal, firm FHR: auscultation normal, category 1 - Labs Labs: Abnormal Labs 03/23/19 03/23/19 03/23/19 15:42 18:01 21:15 RDW 18.6 H Sodium Carbon Dioxide BUN Creatinine Glucose POC Glucose 183 H 305 H Calcium Magnesium Albumin 03/24/19 03/24/19 03/24/19 03:12 03:17 06:38 RDW Sodium Carbon Dioxide BUN Creatinine Glucose POC Glucose 211 H 237 H Calcium Magnesium 4.50 H Albumin 03/24/19 03/24/19 03/24/19 09:43 12:08 14:55 RDW Sodium 135 L Carbon Dioxide 21 L BUN 5 L Creatinine 0.4 L Glucose 198 H POC Glucose 312 H 260 H Calcium 8.0 L Magnesium Albumin 3.2 L 03/24/19 03/25/19 19:54 06:19 RDW Sodium Carbon Dioxide BUN Creatinine Glucose POC Glucose 321 H 199 H Calcium Magnesium Albumin Laboratory Results - last 24 hr 03/23/19 03/24/19 03/24/19 15:42 09:43 12:08 Sodium 135 L Potassium 4.3 Chloride 100.0 Carbon Dioxide 21 L Anion Gap 18 BUN 5 L Creatinine 0.4 L Estimated GFR > 60 BUN/Creatinine Ratio 13 Glucose 198 H POC Glucose 312 H Calcium 8.0 L Total Bilirubin < 0.20 AST 32 ALT 15 Alkaline Phosphatase 125 Total Protein 7.7 Albumin 3.2 L Albumin/Globulin Ratio 0.7 RPR Nonreactive 03/24/19 03/24/19 03/25/19 14:55 19:54 06:19 Sodium Potassium Chloride Carbon Dioxide Anion Gap BUN Creatinine Estimated GFR BUN/Creatinine Ratio Glucose POC Glucose 260 H 321 H 199 H Calcium Total Bilirubin AST ALT Alkaline Phosphatase Total Protein Albumin Albumin/Globulin Ratio RPR
[2019-03-25] MEDS ORDERED: APRESOLINE PO PRN (10:30)
--- NOTE | 2019-03-25 15:09 | Progress Note ---
Assessment and Plan Assessment: 1. IUP @ 33.6weeks 2. IUGR with AEDF 3. Type I DM 4. GHTN Recommendations: 1. Continue inpatient expectant management 2. ADA diet, accuchecks and insulin - anticipate hyperglycemia secondary to recent steroid administration, cover with SSI 3. Delivery is planned for ramana at 34 weeks Subjective - Subjective Principal diagnosis: 33+weeks, no end diastolic flow Interval history: No complaints- denies headaches, visual changes, chest pain, SOB or RUQ pain. Good movement. Patient reports: no new complaints, no loss of fluid Objective - Vital Signs Vital Signs: Vital Signs - 12hr 03/25/19 03/25/19 03/25/19 03:10 03:15 03:20 Temperature Pulse Rate 81 91 H 87 Respiratory Rate Blood Pressure 131/85 Blood Pressure [Left] O2 Sat by Pulse 99 99 99 Oximetry 03/25/19 03/25/19 03/25/19 03:21 03:25 03:30 Temperature Pulse Rate 89 88 101 H Respiratory Rate Blood Pressure Blood Pressure [Left] O2 Sat by Pulse 91 99 82 L Oximetry 03/25/19 03/25/19 03/25/19 03:35 03:40 03:45 Temperature Pulse Rate 79 75 82 Respiratory Rate Blood Pressure Blood Pressure [Left] O2 Sat by Pulse 99 99 98 Oximetry 03/25/19 03/25/19 03/25/19 03:50 03:55 04:00 Temperature Pulse Rate 83 82 82 Respiratory Rate Blood Pressure Blood Pressure [Left] O2 Sat by Pulse 98 97 99 Oximetry 03/25/19 03/25/19 03/25/19 04:05 04:10 04:15 Temperature Pulse Rate 75 83 80 Respiratory Rate Blood Pressure 132/87 Blood Pressure [Left] O2 Sat by Pulse 96 99 98 Oximetry 03/25/19 03/25/19 03/25/19 04:20 04:25 04:30 Temperature Pulse Rate 82 81 76 Respiratory Rate Blood Pressure Blood Pressure [Left] O2 Sat by Pulse 99 98 97 Oximetry 03/25/19 03/25/19 03/25/19 04:35 04:40 04:45 Temperature Pulse Rate 83 83 81 Respiratory Rate Blood Pressure Blood Pressure [Left] O2 Sat by Pulse 97 97 97 Oximetry 03/25/19 03/25/19 03/25/19 04:50 04:55 05:00 Temperature Pulse Rate 81 72 91 H Respiratory Rate Blood Pressure Blood Pressure [Left] O2 Sat by Pulse 98 97 98 Oximetry 03/25/19 03/25/19 03/25/19 05:05 05:10 05:15 Temperature Pulse Rate 83 73 82 Respiratory Rate Blood Pressure 143/80 Blood Pressure [Left] O2 Sat by Pulse 98 99 99 Oximetry 03/25/19 03/25/19 03/25/19 05:20 05:25 05:30 Temperature Pulse Rate 69 76 78 Respiratory Rate Blood Pressure Blood Pressure [Left] O2 Sat by Pulse 97 100 99 Oximetry 03/25/19 03/25/19 03/25/19 05:35 05:40 05:45 Temperature Pulse Rate 76 91 H 74 Respiratory Rate Blood Pressure Blood Pressure [Left] O2 Sat by Pulse 99 99 99 Oximetry 03/25/19 03/25/19 03/25/19 05:50 05:55 06:07 Temperature Pulse Rate 78 82 85 Respiratory Rate Blood Pressure Blood Pressure [Left] O2 Sat by Pulse 100 93 100 Oximetry 03/25/19 03/25/19 03/25/19 06:10 06:12 06:17 Temperature Pulse Rate 78 75 73 Respiratory Rate Blood Pressure 128/79 Blood Pressure [Left] O2 Sat by Pulse 100 100 Oximetry 03/25/19 03/25/19 03/25/19 06:22 06:27 06:32 Temperature Pulse Rate 78 78 71 Respiratory Rate Blood Pressure Blood Pressure [Left] O2 Sat by Pulse 100 99 99 Oximetry 03/25/19 03/25/19 03/25/19 06:37 06:42 06:47 Temperature Pulse Rate 84 80 74 Respiratory Rate Blood Pressure Blood Pressure [Left] O2 Sat by Pulse 99 99 100 Oximetry 03/25/19 03/25/19 03/25/19 06:52 06:57 06:58 Temperature Pulse Rate 82 86 Respiratory Rate Blood Pressure Blood Pressure [Left] O2 Sat by Pulse 100 96 86 Oximetry 03/25/19 03/25/19 03/25/19 07:02 07:06 07:07 Temperature Pulse Rate 76 89 85 Respiratory Rate Blood Pressure Blood Pressure [Left] O2 Sat by Pulse 98 78 L 70 L Oximetry 03/25/19 03/25/19 03/25/19 07:10 07:11 07:12 Temperature Pulse Rate 72 70 72 Respiratory Rate Blood Pressure 137/80 Blood Pressure [Left] O2 Sat by Pulse 83 L 90 Oximetry 03/25/19 03/25/19 03/25/19 07:17 07:18 07:22 Temperature Pulse Rate 82 81 72 Respiratory Rate Blood Pressure Blood Pressure [Left] O2 Sat by Pulse 99 90 100 Oximetry 03/25/19 03/25/19 03/25/19 07:25 07:27 07:32 Temperature Pulse Rate 80 73 68 Respiratory Rate Blood Pressure Blood Pressure [Left] O2 Sat by Pulse 91 100 100 Oximetry 03/25/19 03/25/19 03/25/19 07:36 07:37 07:42 Temperature Pulse Rate 77 79 73 Respiratory Rate Blood Pressure Blood Pressure [Left] O2 Sat by Pulse 55 L 81 L 100 Oximetry 03/25/19 03/25/19 03/25/19 07:47 07:52 07:57 Temperature Pulse Rate 71 73 72 Respiratory Rate Blood Pressure Blood Pressure [Left] O2 Sat by Pulse 99 87 98 Oximetry 03/25/19 03/25/19 03/25/19 08:02 08:07 08:11 Temperature Pulse Rate 82 76 90 Respiratory Rate Blood Pressure 161/94 Blood Pressure [Left] O2 Sat by Pulse 75 L 100 Oximetry 03/25/19 03/25/19 03/25/19 08:12 08:13 08:18 Temperature 96.3 F L Pulse Rate 81 88 76 Respiratory 20 Rate Blood Pressure 159/96 Blood Pressure 159/96 [Left] O2 Sat by Pulse 100 100 100 Oximetry 03/25/19 03/25/19 03/25/19 08:23 08:28 08:33 Temperature Pulse Rate 74 72 80 Respiratory Rate Blood Pressure Blood Pressure [Left] O2 Sat by Pulse 98 100 100 Oximetry 03/25/19 03/25/19 03/25/19 08:38 09:11 09:36 Temperature Pulse Rate 77 80 97 H Respiratory Rate Blood Pressure 162/101 Blood Pressure [Left] O2 Sat by Pulse 99 100 Oximetry 03/25/19 03/25/19 03/25/19 09:41 09:46 09:48 Temperature Pulse Rate 89 93 H 83 Respiratory Rate Blood Pressure 151/93 Blood Pressure [Left] O2 Sat by Pulse 99 98 Oximetry 03/25/19 03/25/19 03/25/19 09:50 09:51 09:56 Temperature Pulse Rate 86 89 82 Respiratory Rate Blood Pressure Blood Pressure [Left] O2 Sat by Pulse 89 99 100 Oximetry 03/25/19 03/25/19 03/25/19 09:57 10:01 10:06 Temperature Pulse Rate 98 H 89 96 H Respiratory Rate Blood Pressure Blood Pressure [Left] O2 Sat by Pulse 92 100 86 Oximetry 03/25/19 03/25/19 03/25/19 10:11 10:16 10:18 Temperature Pulse Rate 79 84 87 Respiratory Rate Blood Pressure 140/88 Blood Pressure [Left] O2 Sat by Pulse 100 98 93 Oximetry 03/25/19 03/25/19 03/25/19 10:21 10:25 10:26 Temperature Pulse Rate 86 61 91 H Respiratory Rate Blood Pressure Blood Pressure [Left] O2 Sat by Pulse 97 91 98 Oximetry 03/25/19 03/25/19 03/25/19 10:31 10:36 10:41 Temperature Pulse Rate 77 81 88 Respiratory Rate Blood Pressure Blood Pressure [Left] O2 Sat by Pulse 86 99 100 Oximetry 03/25/19 03/25/19 03/25/19 10:46 10:47 10:57 Temperature Pulse Rate 70 83 91 H Respiratory Rate Blood Pressure Blood Pressure [Left] O2 Sat by Pulse 99 80 L 99 Oximetry 03/25/19 03/25/19 03/25/19 11:13 12:11 13:11 Temperature Pulse Rate 86 82 96 H Respiratory Rate Blood Pressure 158/96 152/102 129/78 Blood Pressure [Left] O2 Sat by Pulse Oximetry 03/25/19 03/25/19 03/25/19 13:32 13:33 14:11 Temperature 96.6 F L Pulse Rate 83 71 92 H Respiratory 20 Rate Blood Pressure 138/105 156/90 172/97 Blood Pressure 156/90 [Left] O2 Sat by Pulse 100 100 Oximetry 03/25/19 14:13 Temperature Pulse Rate 93 H Respiratory Rate Blood Pressure 154/92 Blood Pressure [Left] O2 Sat by Pulse Oximetry - Exam Abdomen: Present: normal appearance, soft - Labs Labs: Abnormal Labs 03/23/19 03/23/19 03/23/19 15:42 18:01 21:15 RDW 18.6 H Sodium Carbon Dioxide BUN Creatinine Glucose POC Glucose 183 H 305 H Calcium Magnesium Albumin 03/24/19 03/24/19 03/24/19 03:12 03:17 06:38 RDW Sodium Carbon Dioxide BUN Creatinine Glucose POC Glucose 211 H 237 H Calcium Magnesium 4.50 H Albumin 03/24/19 03/24/19 03/24/19 09:43 12:08 14:55 RDW Sodium 135 L Carbon Dioxide 21 L BUN 5 L Creatinine 0.4 L Glucose 198 H POC Glucose 312 H 260 H Calcium 8.0 L Magnesium Albumin 3.2 L 03/24/19 03/25/19 03/25/19 19:54 06:19 11:49 RDW Sodium Carbon Dioxide BUN Creatinine Glucose POC Glucose 321 H 199 H 232 H Calcium Magnesium Albumin Laboratory Results - last 24 hr 03/23/19 03/24/19 03/24/19 15:42 09:43 19:54 Potassium 4.3 Anion Gap 18 POC Glucose 321 H AST 32 ALT 15 RPR Nonreactive 03/25/19 03/25/19 06:19 11:49 Potassium Anion Gap POC Glucose 199 H 232 H AST ALT RPR
[2019-03-26] MEDS: ROBITUSSIN PO PRN (03:18)
[2019-03-26] MEDS ORDERED: CERVIDIL VG ONE (09:30)
[2019-03-26] MEDS: HumuLIN R SUB-Q SCH ×3 (10:05→22:35)
[2019-03-26] MEDS: LACTATED RINGERS 1,000 ML IV SCH ×3 (11:25→19:45)
[2019-03-26] MEDS ORDERED: REGLAN ONE (11:32)
[2019-03-26] MEDS ORDERED: BICITRA ONE (11:32)
[2019-03-26] MEDS ORDERED: PEPCID IV ONE ×2 (11:32→12:36)
[2019-03-26] MEDS ORDERED: BICITRA PO ONE (12:36)
[2019-03-26] MEDS ORDERED: REGLAN IV ONE (12:36)
[2019-03-26] MEDS ORDERED: SUBLIMAZE ONE (12:47)
--- NOTE | 2019-03-26 12:56 | Anesthesia Consultation ---
Anesthesia Consult and Med Hx Date of service: 03/26/19 - Airway Anesthetic Teeth Evaluation: Good ROM Head & Neck: Adequate Mental/Hyoid Distance: Adequate Mallampati Class: Class III Intubation Access Assessment: Probably Good - Pulmonary Exam CTA: Yes - Cardiac Exam Cardiac Exam: RRR - Pre-Operative Health Status ASA Pre-Surgery Classification: ASA3, Emergency Proposed Anesthetic Plan: Epidural - Pulmonary Hx Smoking: No Hx Asthma: No Hx Respiratory Symptoms: No SOB: No COPD: No Home Oxygen Therapy: No Hx Pneumonia: No Hx Sleep Apnea: No - Cardiovascular System Hx Hypertension: No Hx Coronary Artery Disease: No Hx Heart Attack/AMI: No Hx Angina: No Hx Percutaneous Transluminal Coronary Angioplasty (PTCA): No Hx Cardia Arrhythmia: No Hx Pacemaker: No Hx Internal Defibrillator: No Hx Valvular Heart Disease: No Hx Heart Murmur: No Hx Peripheral Vascular Disease: No - Central Nervous System Hx Neuromuscular Disorder: No Hx Seizures: No CVA: No Hx Back Pain: Yes Hx Psychiatric Problems: No - Gastrointestinal Hx Ulcer: No Hx Gastroesophageal Reflux Disease: No - Endocrine Hx Renal Disease: No Hx End Stage Renal Disease: No Hx Cirrhosis: No Hx Liver Disease: No Hx Insulin Dependent Diabetes: No Hx Non-Insulin Dependent Diabetes: No Hx Thyroid Disease: No Hx Hypothyroidism: No Hx Hyperthyroidism: No - Hematic Hx Anemia: No Hx Sickle Cell Disease: No - Other Systems Hx Alcohol Use: No Hx Substance Use: No Hx Cancer: No Hx Obesity: Yes (BMI 36 )
[2019-03-26] MEDS ORDERED: PHENERGAN PO PRN (12:57)
[2019-03-26] MEDS ORDERED: ZOFRAN IV PRN (12:57)
[2019-03-26] MEDS ORDERED: DILAUDID IV PRN ×2 (12:57)
[2019-03-26] MEDS ORDERED: NARCAN 0.4 MG/1 ML IV PRN ×3 (12:57→15:39)
[2019-03-26] MEDS ORDERED: PHENERGAN PR PRN ×2 (12:57→15:39)
--- NOTE | 2019-03-26 12:57 | Anesthesia Day of Surgery ---
Anesthesia Day of Surgery - Day of Surgery Patient Examined: Yes Patient H&P Reviewed: Yes Patient is NPO: No Beta Blockers: No Cardiac Clearance: No Pulmonary Clearance: No Apollo's Test: N/A
[2019-03-26] MEDS ORDERED: LACTATED RINGERS 1,000 ML IV SCH (13:00)
[2019-03-26] MEDS ORDERED: ANCEF/STERILE WATER 2 GM/20 ML 2 GM/20 ML SYRINGE IV NR (13:00)
[2019-03-26] MEDS ORDERED: SODIUM CHLORIDE FLUSH SYRINGE 10 ML IV NR ×2 (13:00→16:00)
[2019-03-26] MEDS ORDERED: PITOCin/NS 20 UNIT/1000ML DRIP 20 UNITS/1,000 ML BAG IV SCH ×2 (13:00→16:00)
[2019-03-26 13:40] LABS: Basophils # (Auto) 0.1 K/mm3 (0.0-0.1); Basophils % (Auto) 0.6 % (0.0-1.8); Eosinophils % (Auto) 0.2 % (0.0-4.3); Hematocrit 32.6 % (30.3-42.9); Hemoglobin 10.2 gm/dl (10.1-14.3); Lymphocytes # (Auto) 2.2 K/mm3 (1.2-5.4); Lymphocytes % (Auto) 18.5 % (13.4-35.0); Mean Corpuscular HGB Conc 31 % (30-34); Mean Corpuscular Volume 87 fl (79-97); Monocytes # (Auto) 0.9 K/mm3 (0.0-0.8); Monocytes % (Auto) 7.4 % (0.0-7.3); Platelet Count 297 K/mm3 (140-440); Red Blood Count 3.76 M/mm3 (3.65-5.03); Red Cell Distribution Width 18.3 % (13.2-15.2)
[2019-03-26] MEDS ORDERED: ANCEF/STERILE WATER 2 GM/20 ML IV ONE (14:40)
[2019-03-26] MEDS ORDERED: CYTOTEC ONE (14:56)
[2019-03-26] MEDS ORDERED: HEMABATE IM ONE (14:57)
--- NOTE | 2019-03-26 15:32 | Operative Report ---
Operative Report Operative Report: PREOPERATIVE DIAGNOSES: 1. Intrauterine at -34 weeks 2. Failed IOL 3. No end diastolic flow 4. Intolerance to labor 5. NRFHT with late decels POSTOPERATIVE DIAGNOSES: 1-5 LOYD SURGEON: Geraldine Horowitz MD PROCEDURE PERFORMED: Primary low-transverse section. ANESTHESIA: Epidural. ESTIMATED BLOOD LOSS: 600 mL. COMPLICATIONS: None. FINDINGS: Male in cephalic presentation, weight 3 pounds 14.7ounces. Apgars were 7 at 1 minute and 8 at 5 minutes. Normal uterus, tubes, and ovaries were noted. INDICATIONS: The patient is a 24-year-old 1, para 0 female, who presented to labor and delivery for IOL secondary to no end diastolic flow. She received mag, betamethasone and at 34 weeks began IOL with cervidil. Patient had late decels with cervidil. The procedure was described to the patient in detail including possible risks of bleeding, infection, injury to surrounding organs, and possible need for further surgery. Informed consent was obtained prior to proceeding with the procedure. PROCEDURE NOTE: The patient was taken to the operating room where epidural anesthesia was found to be adequate. The patient was prepped and draped in the usual sterile fashion in the dorsal supine position with a left-lacy tilt. A Pfannenstiel skin incision was made with the scalpel and carried through to the underlying layer of fascia using the Bovie. The fascia was incised in the midline and extended laterally using Ríos scissors. Nash clamps were used to elevate the superior aspect of the fascial incision, which was elevated, and the underlying rectus muscles were dissected off bluntly and using Ríos scissors. Attention was then turned to the inferior aspect of the fascial incision, which in similar fashion was grasped with Nash clamps, elevated, and the underlying rectus muscles were dissected off bluntly and using Ríos scissors. The rectus muscles were dissected in the midline. The peritoneum was bluntly dissected, entered, and extended superiorly and inferiorly with good visualization of the bladder. The bladder blade was inserted. The vesicouterine peritoneum was identified with pickups and entered sharply using Metzenbaum scissors. This incision was extended laterally and the bladder flap was created digitally. The bladder blade was reinserted. The lower uterine segment was incised in a transverse fashion using the scalpel and extended using manual traction. Clear fluid was noted. The infant was subsequently delivered atraumatically. The nose and mouth were bulb suctioned. The cord was clamped and cut. The was subsequently handed to the awaiting nursery nurse. Next, cord blood was obtained per the patient's request for cord blood donation, which took several minutes to perform. Subsequent to the collection of this blood, the placenta was removed spontaneously intact with a 3-vessel cord noted. The uterus was exteriorized and cleared of all clots and debris. The uterine incision was repaired in 2 layers using 0 chromic suture. Hemostasis was visualized. The uterus was returned to the abdomen. hemoblast and surgicell used The pelvis was copiously irrigated. The uterine incision was reexamined and was noted to be hemostatic. The rectus muscles were reapproximated in the midline using 3-0 Vicryl. The fascia was closed with 0 PDS, and the skin was closed with Teofilo needle . Sponge, lap, and instrument counts were correct x2. The patient was stable at the completion of the procedure and was subsequently transferred to the recovery room in stable condition.
--- NOTE | 2019-03-26 15:32 | Procedure Note ---
OB Delivery Note - Delivery Date of Delivery: 03/26/19 Surgeon: AUNG HUGGINS Estimated blood loss: other (600cc) - Section Preop diagnosis: nonreassuring FHR tracing, other (intolerance to labor) section procedure: section Disposition: PACU Complications: none Narrative: see op note - A at 1 minute: 7 at 5 minutes: 8 Infant Gender: Male (3 lbs 14.7 oz)
[2019-03-26] MEDS ORDERED: SENOKOT PO PRN (15:39)
[2019-03-26] MEDS ORDERED: MORPHINE IV PRN ×2 (15:39)
[2019-03-26] MEDS ORDERED: MYLICON PO PRN (15:39)
[2019-03-26] MEDS ORDERED: TUCKS PAD TP PRN (15:39)
[2019-03-26] MEDS ORDERED: MILK OF MAGNESIA PO PRN (15:39)
[2019-03-26] MEDS ORDERED: ANUCORT-HC PR PRN (15:39)
[2019-03-26] MEDS ORDERED: TORADOL IV PRN (15:39)
[2019-03-26] MEDS ORDERED: TYLENOL PO PRN (15:39)
[2019-03-26] MEDS ORDERED: LANSINOH TP PRN (15:39)
--- NOTE | 2019-03-26 15:53 | Post Anesthesia Evaluation ---
- Post Anesthesia Evaluation Patient Participated: Yes Airway Patent: Yes Stable Respiratory Function: Yes Nausea/Vomiting: No Temp > 96.8F: Yes Pain Manageable: Yes Adequeate Hydration: Yes Anesthesia Complications: No Block Receding Appropriately: Yes Patient on Ventilator: No
[2019-03-26] MEDS ORDERED: D5LR 1,000 ML IV SCH (16:00)
[2019-03-26] MEDS: TORADOL IV PRN (23:41)
[2019-03-27] MEDS: ROBITUSSIN PO PRN (01:44)
[2019-03-27] MEDS: PERCOCET 5/325 PO PRN ×4 (04:45→22:14)
[2019-03-27] MEDS: TORADOL IV PRN (05:46)
[2019-03-27 06:44] LABS: Hematocrit 29.9 % (30.3-42.9); Hemoglobin 9.5 gm/dl (10.1-14.3)
[2019-03-27] MEDS: FEOSOL PO SCH (09:29)
[2019-03-27] MEDS: PRENATAL VITAMIN PO SCH (09:29)
[2019-03-27] MEDS: HumuLIN R SUB-Q SCH ×2 (09:46→18:02)
--- NOTE | 2019-03-27 12:27 | Progress Note ---
Assessment and Plan A: POD#1 s/p primary section at 34 wks secondary to intolerance to labor, absent end diastolic flow, Insulin-dependent diabetes, Obesity P: Routine postoperative care. Continue sliding scale insulin until eating regular diet. Subjective - Subjective Date of service: 03/27/19 Principal diagnosis: s/p primary section at 34 wks, IUGR, Insulin dependent diabetes Interval history: No complaints presently. Patient reports: voiding normally, pain well controlled, ambulating normally, no flatus, no bowel movement [place]: in NICU Objective - Vital Signs Latest vital signs: Vital Signs Temp Pulse Resp BP BP Pulse Ox 03/27/19 09:30 20 03/27/19 07:04 98.2 F 99 H 18 127/89 03/27/19 06:11 98.3 F 86 20 140/88 100 03/27/19 05:46 20 03/27/19 04:45 20 03/27/19 01:34 85 139/89 03/27/19 00:50 98.4 F 83 20 142/92 95 03/26/19 23:41 20 03/26/19 21:04 20 03/26/19 20:59 98.8 F 79 20 149/86 100 03/26/19 16:45 60 19 129/71 98 03/26/19 16:30 70 12 142/90 100 03/26/19 16:15 62 20 136/85 99 03/26/19 16:00 76 17 127/85 100 03/26/19 15:55 84 21 142/83 100 03/26/19 15:50 62 16 131/82 100 03/26/19 15:45 97.7 F 65 21 128/77 99 03/26/19 13:36 75 149/86 03/26/19 13:06 81 149/90 Intake and Output 03/26/19 03/27/19 03/27/19 22:59 06:59 14:59 Intake Total 1939.583 240 360 Output Total 100 1100 Balance 1839.583 -860 360 Intake: IV 1939.583 Lactated Ringers 1,000 ml 839.583 @ 125 mls/hr IV DIRECT WILNER Rx#:[id number] Oral 360 Intake, Free Water 240 Output: Urine 100 1100 Indwelling Catheter 1100 Other: Total, Intake Amount 360 Total, Output Amount 1100 - Exam Breasts: Present: deferred Cardiovascular: Present: Regular rate Lungs: Present: Clear to auscultation Abdomen: Present: soft, abnormal bowel sounds (hypoactive bowel sounds ) Uterus: Present: fundal height below umbilicus Extremities: Present: edema (trace) Incision: Present: dressed - Labs Labs: Abnormal lab results 03/26/19 03/26/19 03/27/19 Range/Units 12:33 13:05 06:04 WBC 11.9 H (4.5-11.0) K/mm3 Hgb 9.5 L (10.1-14.3) gm/dl Hct 29.9 L (30.3-42.9) % MCH 27 L (28-32) pg RDW 18.3 H (13.2-15.2) % [place] % (Auto) 7.4 H (0.0-7.3) % [place] # 0.9 H (0.0-0.8) K/mm3 Seg Neutrophils % 73.3 H (40.0-70.0) % Seg Neutrophils # 8.7 H (1.8-7.7) K/mm3 POC Glucose 212 H (70-105)
[2019-03-27] MEDS ORDERED: M-M-R II VACCINE SUB-Q ONE (15:40)
[2019-03-27] MEDS ORDERED: BOOSTRIX IM ONE (15:40)
[2019-03-27] MEDS: IBUPROFEN PO PRN ×2 (16:07→22:13)
[2019-03-28] MEDS: NORCO 5/325 PO PRN (00:09)
[2019-03-28] MEDS: PERCOCET 5/325 PO PRN ×3 (06:02→23:24)
[2019-03-28] MEDS: IBUPROFEN PO PRN ×2 (06:02→23:24)
[2019-03-28] MEDS: FEOSOL PO SCH (13:05)
[2019-03-28] MEDS: PRENATAL VITAMIN PO SCH (13:05)
--- NOTE | 2019-03-28 15:36 | Progress Note ---
Assessment and Plan A: POD#2 s/p primary section at 34 wks secondary to intolerance to labor, absent end diastolic flow, Insulin-dependent diabetes, Obesity P: Routine postoperative care. Decrease schedule insulin to half of doses. Timing of accuchecks changed to fasting and two hour postprandials. Continue to monitor closely. Subjective - Subjective Date of service: 03/28/19 Principal diagnosis: s/p primary section at 34 wks, IUGR, Insulin dependent diabetes Interval history: On-call provider attempted to examine patient but she was not in her room. Objective - Vital Signs Latest vital signs: Vital Signs Temp Pulse Resp BP BP Pulse Ox 03/28/19 12:33 98.4 F 105 H 20 146/83 100 03/28/19 07:10 99.4 F 108 H 16 138/89 98 03/28/19 00:14 98.2 F 100 H 20 148/97 97 03/27/19 17:00 109 H 20 99 03/27/19 16:11 99.0 F 130 H 18 126/82 03/27/19 16:09 20 03/27/19 16:07 20 Intake and Output 03/28/19 03/28/19 03/28/19 06:59 14:59 22:59 Intake Total 120 360 Balance 120 360 Intake: Oral 120 360 Other: Total, Intake Amount 120 240 # Voids Void 1 1 - Labs Labs: Abnormal lab results 03/27/19 03/27/19 03/28/19 Range/Units 18:03 22:10 12:41 POC Glucose 206 H 145 H 205 H (70-105)
[2019-03-28] MEDS: HumuLIN R SUB-Q SCH ×3 (17:33→23:21)
[2019-03-28] MEDS: ROBITUSSIN PO PRN (20:24)
[2019-03-29] MEDS: IBUPROFEN PO PRN ×3 (06:39→17:42)
[2019-03-29] MEDS: NORCO 5/325 PO PRN ×2 (06:40→22:07)
[2019-03-29] MEDS: ROBITUSSIN PO PRN ×2 (06:43→22:46)
[2019-03-29] MEDS: FEOSOL PO SCH (08:25)
[2019-03-29] MEDS: PRENATAL VITAMIN PO SCH (08:25)
[2019-03-29] MEDS: HumuLIN R SUB-Q SCH ×3 (08:26→22:51)
[2019-03-29] MEDS: PERCOCET 5/325 PO PRN ×2 (11:49→17:43)
--- NOTE | 2019-03-29 12:06 | Progress Note ---
Assessment and Plan A: POD#3 s/p primary section at 34 wks secondary to intolerance to labor, absent end diastolic flow, Insulin-dependent diabetes, Obesity Poor glucose control P: Routine postoperative care. Internal Medicine consult for assistance with insulin regimen. Subjective - Subjective Date of service: 03/29/19 Principal diagnosis: s/p primary section at 34 wks, IUGR, Insulin dependent diabetes Interval history: Pt reports that she has been spending hours in the NICU with her baby and that her glucose values are not 2 hrs postprandial. She reports flatus but denies bowel movement. Ambulating well. Patient reports: appetite normal, voiding normally, pain well controlled, flatus, ambulating normally, no bowel movement : in NICU Objective - Vital Signs Latest vital signs: Vital Signs Temp Pulse Resp BP Pulse Ox 03/29/19 07:47 98.1 F 95 H 18 140/87 95 03/29/19 00:39 98.8 F 99 H 20 144/92 95 03/28/19 16:07 98.3 F 100 H 18 128/87 100 03/28/19 12:33 98.4 F 105 H 20 146/83 100 Intake and Output 03/28/19 03/29/19 03/29/19 22:59 06:59 14:59 Intake Total 600 240 Balance 600 240 Intake: Oral 240 240 Intake, Free Water 360 Other: Total, Intake Amount 240 240 # Voids Void 1 1 - Exam Breasts: Present: deferred Cardiovascular: Present: Regular rate Lungs: Present: Clear to auscultation Abdomen: Present: soft (obese ) Uterus: Present: fundal height below umbilicus Extremities: Present: edema (trace) Incision: Present: intact - Labs Labs: Abnormal lab results 03/28/19 03/28/19 03/28/19 Range/Units 12:41 18:03 21:47 POC Glucose 205 H 198 H 272 H (70-105) 03/29/19 Range/Units 07:33 POC Glucose 193 H (70-105)
--- NOTE | 2019-03-29 12:36 | Consultation ---
History of Present Illness - Reason for Consult Consult date: 03/29/19 Diabetes management Requesting physician: AUNG HUGGINS - History of Present Illness 24-year-old obese -[place] female patient was admitted to [facility] and patient had an uncomplicated and delivered, a healthy baby, Patient has history of type 1 diabetes mellitus for many years, patient was on insulin , has seen press machine operator many years ago ,but is noncompliant medications, diet and follow-up visits Hospitalist service was consulted for diabetes management Patient is on NPH and sliding scale coverage, with moderate control of blood sugars Patient has no polyuria polydipsia, no nausea or vomiting, no headache dizziness Past History Past Medical History: diabetes, hypertension, other (herpes) Past Surgical History: Social history: single. denies: smoking, alcohol abuse, prescription drug abuse Family history: no significant family history Medications and Allergies Allergies Allergy/AdvReac Type Severity Reaction Status Date / Time No Known Allergies Allergy Unverified 02/27/17 16:58 Home Medications Medication Instructions Recorded Confirmed Last Taken Type Acyclovir [Zovirax Cap] 800 mg PO 5XD 7 Days cap 02/27/17 03/26/19 Unknown Rx traMADol [Ultram] 50 mg PO Q6HR PRN #12 tablet 02/27/17 03/26/19 Unknown Rx Ferrous Sulfate [Feosol 325 MG tab] 325 mg PO QDAY #30 tablet 07/23/17 03/26/19 Unknown Rx Ondansetron [Zofran Odt] 4 mg PO Q8HR PRN #20 tab.rapdis 07/23/17 03/26/19 Unknown Rx Ferrous Sulfate [Feosol 325 MG tab] 325 mg PO BID #60 tablet 03/26/19 Unknown Rx Ibuprofen [Motrin] 600 mg PO Q8H PRN #30 tablet 03/26/19 Unknown Rx oxyCODONE /ACETAMINOPHEN [Percocet 1 tab PO Q6HR PRN #30 tablet 03/26/19 Unknown Rx 5/325] Active Meds: Active Medications Acetaminophen (Tylenol) 650 mg PO Q4H PRN PRN Reason: Fever >100.5/EMMANUEL Acetaminophen/Hydrocodone Bitart (Bartley 5/325) 1 each PO Q6H PRN PRN Reason: Pain, Moderate (4-6) Last Admin: 03/29/19 06:40 Dose: 1 each Documented by: Butorphanol Tartrate (Stadol) 2 mg IV Q2H PRN PRN Reason: Pain , Severe (7-10) Dextrose (D50w (25gm) Syringe) 50 ml IV PRN PRN PRN Reason: Hypoglycemia Ephedrine Sulfate (Ephedrine Sulfate) 10 mg IV Q2M PRN PRN Reason: Hypotension Fentanyl (Sublimaze) 100 mcg IV Q2H PRN PRN Reason: Labor Pain Ferrous Sulfate (Feosol) 325 mg PO QDAY WILNER Last Admin: 03/29/19 08:25 Dose: 325 mg Documented by: Guaifenesin (Robitussin) 100 mg PO Q6H PRN PRN Reason: Cough Last Admin: 03/29/19 06:43 Dose: 100 mg Documented by: Hydralazine HCl (Apresoline) 10 mg PO Q6H PRN PRN Reason: Blood Pressure Hydrocortisone Acetate (Anucort-Hc) 25 mg NC BID PRN PRN Reason: Hemorrhoids Hydromorphone HCl (Dilaudid) 0.5 mg IV Q4H PRN PRN Reason: breakthrough pain > 7/10 Last Admin: 03/26/19 21:04 Dose: 0.5 mg Documented by: Oxytocin/Sodium Chloride (Pitocin/Ns 20 Unit/1000ml Drip) 20 units in 1,000 mls @ 125 mls/hr IV DIRECT WILNER Oxytocin/Sodium Chloride (Pitocin/Ns 30 Unit/500ml) 30 units in 500 mls @ 1 mls/hr IV TITR WILNER; Protocol Lactated Ringer's (Lactated Ringers) 1,000 mls @ 125 mls/hr IV DIRECT WILNER Last Admin: 03/26/19 19:45 Dose: 125 mls/hr Documented by: Oxytocin/Sodium Chloride (Pitocin/Ns 20 Unit/1000ml Drip) 20 units in 1,000 mls @ 0 mls/hr IV TITR WILNER Oxytocin/Sodium Chloride (Pitocin/Ns 20 Unit/1000ml Drip) 20 units in 1,000 mls @ 250 mls/hr IV DIRECT WILNER Dextrose/Lactated Ringer's (D5lr) 1,000 mls @ 125 mls/hr IV DIRECT WILNER Last Admin: 03/27/19 03:57 Dose: 125 mls/hr Documented by: Ibuprofen (Ibuprofen) 800 mg PO Q6H PRN PRN Reason: Pain, Mild (1-3) Last Admin: 03/29/19 11:48 Dose: 800 mg Documented by: Insulin Human Lispro (Humalog) 0 unit SUB-Q ACHS [facility]; Protocol Insulin Human NPH (Humulin N) 10 unit SUB-Q QPMDIAB [facility] Last Admin: 03/28/19 18:15 Dose: 10 unit Documented by: Insulin Human NPH (Humulin N) 19 unit SUB-Q QAMDIAB [facility] Last Admin: 03/29/19 08:27 Dose: 19 unit Documented by: Insulin Human Regular (Humulin R) 9 units SUB-Q QDDIAB [facility] Last Admin: 03/29/19 08:26 Dose: 9 units Documented by: Insulin Human Regular (Humulin R) 12 units SUB-Q QPMDIAB [facility] Last Admin: 03/28/19 18:38 Dose: 12 units Documented by: Insulin Human Regular (Humulin R) 0 units SUB-Q QHS [facility]; Protocol Last Admin: 03/28/19 23:21 Dose: 4 units Documented by: Ketorolac Tromethamine (Toradol) 15 mg IV Q6H PRN PRN Reason: Pain, Mild (1-3) Stop: 03/31/19 15:38 Ketorolac Tromethamine (Toradol) 30 mg IV Q6H PRN PRN Reason: Pain, Moderate (4-6) Stop: 03/31/19 15:38 Last Admin: 03/27/19 05:46 Dose: 30 mg Documented by: Magnesium Hydroxide (Milk Of Magnesia) 30 ml PO Q6H [facility] Mineral Oil (Mineral Oil) 30 ml PO QHS PRN PRN Reason: Constipation Morphine Sulfate (Morphine) 2 mg IV Q4H PRN PRN Reason: Pain, Moderate (4-6) Morphine Sulfate (Morphine) 4 mg IV Q4H PRN PRN Reason: Pain , Severe (7-10) Multi-Ingredient Ointment (Lansinoh) 1 applic TP PRN PRN PRN Reason: dryness/cracking Multivitamins/Iron/Calcium ( Vitamin) 1 each PO QDAY [facility] Last Admin: 03/29/19 08:25 Dose: 1 each Documented by: Naloxone HCl (Narcan 0.4 Mg/1 Ml) 0.2 mg IV Q2MIN PRN PRN Reason: Res Rate </= 8 or 02 SAT < 92% Naloxone HCl (Narcan 0.4 Mg/1 Ml) 0.1 mg IV Q2MIN PRN PRN Reason: Res Rate </= 8 or 02 SAT < 92% Ondansetron HCl (Zofran) 4 mg IV Q8H PRN PRN Reason: Nausea And Vomiting Oxycodone/Acetaminophen (Percocet 5/325) 1 tab PO Q6H PRN PRN Reason: Pain, Moderate (4-6) Last Admin: 03/29/19 11:49 Dose: 1 tab Documented by: Promethazine HCl (Phenergan) 25 mg PO Q6H PRN PRN Reason: Nausea And Vomiting Promethazine HCl (Phenergan) 25 mg NC Q6H PRN PRN Reason: Nausea And Vomiting Promethazine HCl (Phenergan) 25 mg NC Q6H PRN PRN Reason: N/V IF NPO AND NO IV ACCESS Senna (Senokot) 17.2 mg PO QHS PRN PRN Reason: Constipation Simethicone (Mylicon) 80 mg PO Q6H PRN PRN Reason: Gas pain Terbutaline Sulfate (Brethine) 0.25 mg IVP ONCE PRN PRN Reason: Hyperstimulation/Hypertonicity Witch Sandra/Glycerin (Tucks Pad) 1 each TP PRN PRN PRN Reason: Hemorrhoids/cleansing/soothing Review of Systems Constitutional: no weight loss, no weight gain, no fever, no chills Ears, nose, mouth and throat: no nasal congestion, no nasal discharge Cardiovascular: no chest pain, no palpitations, no lightheadedness Respiratory: no cough with sputum Gastrointestinal: no nausea, no vomiting Genitourinary Female: no pelvic pain, no dysuria Musculoskeletal: no myalgias, no arthritis Integumentary: no rash, no lesions Neurological: no seizures, no syncope Psychiatric: no anxiety, no depression Endocrine: no cold intolerance, no heat intolerance, no polyuria, no nocturia Hematologic/Lymphatic: no easy bruising, no easy bleeding Allergic/Immunologic: no urticaria, no allergic rhinitis Exam - Constitutional Vitals: Temp Pulse Resp BP Pulse Ox 98.1 F 95 H 18 140/87 95 03/29/19 07:47 03/29/19 07:47 06/30/19 07:47 03/29/19 07:47 03/29/19 07:47 General appearance: Present: no acute distress, obese - EENT Eyes: Present: PERRL, EOM intact - Neck Neck: Present: supple, normal ROM - Respiratory Respiratory effort: normal Respiratory: bilateral: diminished, negative: rales, rhonchi, wheezing - Cardiovascular Rhythm: regular Heart Sounds: Present: S1 & S2 - Extremities Extremities: no ischemia, No edema - Abdominal General gastrointestinal: Present: soft, non-tender, non-distended, normal bowel sounds - Integumentary Integumentary: Present: clear, warm - Musculoskeletal Musculoskeletal: strength equal bilaterally - Psychiatric Psychiatric: appropriate mood/affect, cooperative - Neurologic Neurologic: moves all extremities Results - Labs CBC & Chem 7: 03/27/19 06:04 03/24/19 09:43 Labs: Abnormal lab results 03/28/19 03/28/19 03/28/19 Range/Units 12:41 18:03 21:47 POC Glucose 205 H 198 H 272 H (70-105) 03/29/19 Range/Units 07:33 POC Glucose 193 H (70-105) Assessment and Plan --Uncontrolled type 1 diabetes mellitus; secondary to noncompliance Accu-Cheks, sliding scale coverage, ADA diet, long-acting NPH insulin Check hemoglobin A1c, Diabetic education, Nutrition education Patient advised to see private press machine operator upon discharge closely monitor blood sugars and adjust as needed --Obesity; BMI 36.4 Advised diet modification and exercise as tolerated and weight reduction When medically stable --s/p ; postoperative care per SCREW DRIVER OPERATOR --DVT: prophylaxis, SCDs and Lovenox if needed Monitor closely and adjust management as needed Plan of care reviewed with the patient and her nurse Thank you for this consultation, we will follow the patient along with you,
[2019-03-29] MEDS: MILK OF MAGNESIA PO SCH (13:47)
[2019-03-29] MEDS: HumaLOG SUB-Q SCH ×2 (16:57→22:56)
[2019-03-30] MEDS: PERCOCET 5/325 PO PRN ×3 (01:02→17:04)
[2019-03-30] MEDS: IBUPROFEN PO PRN ×3 (01:02→17:05)
[2019-03-30] MEDS: MILK OF MAGNESIA PO SCH ×3 (01:05→17:08)
[2019-03-30] MEDS: NORCO 5/325 PO PRN ×2 (08:16→22:32)
[2019-03-30] MEDS: HumaLOG SUB-Q SCH ×3 (08:21→22:35)
[2019-03-30] MEDS: HumuLIN R SUB-Q SCH ×2 (08:34→17:08)
--- NOTE | 2019-03-30 08:38 | Progress Note ---
Assessment and Plan A/P POD 4 s/p csec for IUGR, no end diastolic flow, nrfht obesity type 2 DM -uncontolled appreciate medicine consult continue present mgt after control of glucose will candidate for discharge Subjective - Subjective Date of service: 03/30/19 Principal diagnosis: s/p primary section at 34 wks, IUGR, Insulin dependent diabetes Interval history: 24 yo EDC 05/07/19 at 33+ weeks admitted for absent End diastolic flow. She is a patietn with DM type 1 on insulin regimen. She also has cHTN on no meds. She has HSV2 aware. She alos has IUGR 5% followed by MFM. Patient reports: appetite normal, voiding normally, pain well controlled, flatus, ambulating normally : doing well Objective - Vital Signs Latest vital signs: Vital Signs Temp Pulse Resp BP BP Pulse Ox 03/30/19 07:53 98.0 F 98 H 18 167/107 99 03/30/19 06:25 98.5 F 94 H 18 122/78 98 03/30/19 00:25 98.4 F 92 H 18 142/88 100 03/29/19 17:31 98.3 F 99 H 18 134/87 100 Intake and Output 03/29/19 03/30/19 03/30/19 23:59 07:59 15:59 Intake Total 480 480 Balance 480 480 Intake: Intake, Free Water 480 480 Other: # Voids Void 2 2 - Exam Breasts: Present: normal Cardiovascular: Present: Regular rate, Normal S1 Lungs: Present: Clear to auscultation, Normal air movement Abdomen: Present: normal appearance, soft, normal bowel sounds. Absent: distention, tenderness, guarding Uterus: Present: normal, firm, fundal height below umbilicus. Absent: bogginess, tenderness Extremities: Present: normal Deep Tendon Reflex Grade: Normal +2 Incision: Present: normal, dry, intact - Labs Labs: Abnormal lab results 03/29/19 03/29/19 03/29/19 Range/Units 13:56 16:40 22:17 POC Glucose 140 H 218 H (70-105) Hemoglobin A1c 7.7 H (4-6) %
[2019-03-30] MEDS: PRENATAL VITAMIN PO SCH (09:47)
[2019-03-30] MEDS: FEOSOL PO SCH (09:47)
--- NOTE | 2019-03-30 19:50 | Progress Note ---
Assessment and Plan Assessment and plan: --Episode of hypoglycemia today : as patient did not eat . Will check sugars AC and HS, sliding scale coverage moderate scale NPH insulin dose adjusted to 12 units am and 10 units Pm --Uncontrolled type 1 diabetes mellitus; secondary to noncompliance Diabetic education, Nutrition education, A1c 7.7 Patient advised to see private vendor representatives upon discharge closely monitor blood sugars and adjust as needed --Obesity; BMI 36.4 Advised diet modification and exercise as tolerated and weight reduction When medically stable --s/p ; postoperative care per HOME HEALTH NURSE LICENSED PRACTICAL --DVT: prophylaxis, SCDs and Lovenox if needed Monitor closely and adjust management as needed Plan of care reviewed with the patient and her nurse History Interval history: Patient seen and examined medical records Patient had an episode of hypoglycemia, as she did not eat Patient feels comfortable no new complaints Vital signs reviewed Hospitalist Physical - Constitutional Vitals: Temp Pulse Resp BP Pulse Ox 97.8 F 90 18 131/78 99 03/30/19 16:49 03/30/19 16:49 03/30/19 16:49 03/30/19 16:49 03/30/19 16:49 General appearance: Present: no acute distress, well-nourished, obese - EENT Eyes: Present: PERRL, EOM intact - Neck Neck: Present: supple, normal ROM - Respiratory Respiratory effort: normal Respiratory: negative: rales, rhonchi, wheezing - Cardiovascular Rhythm: regular Heart Sounds: Present: S1 & S2 - Extremities Extremities: no ischemia, No edema - Abdominal General gastrointestinal: soft, non-tender, non-distended, normal bowel sounds - Integumentary Integumentary: Present: clear, warm - Psychiatric Psychiatric: appropriate mood/affect, cooperative - Neurologic Neurologic: CNII-XII intact, moves all extremities Results - Labs CBC & Chem 7: 03/27/19 06:04 03/24/19 09:43 Labs: Laboratory Last Values WBC 11.9 K/mm3 (4.5-11.0) H 03/26/19 13:05 RBC 3.76 M/mm3 (3.65-5.03) 03/26/19 13:05 Hgb 9.5 gm/dl (10.1-14.3) L 03/27/19 06:04 Hct 29.9 % (30.3-42.9) L 03/27/19 06:04 MCV 87 fl (79-97) 03/26/19 13:05 MCH 27 pg (28-32) L 03/26/19 13:05 MCHC 31 % (30-34) 03/26/19 13:05 RDW 18.3 % (13.2-15.2) H 03/26/19 13:05 Plt Count 297 K/mm3 (140-440) 03/26/19 13:05 Lymph % (Auto) 18.5 % (13.4-35.0) 03/26/19 13:05 Mcdowell % (Auto) 7.4 % (0.0-7.3) H 03/26/19 13:05 Eos % (Auto) 0.2 % (0.0-4.3) 03/26/19 13:05 Baso % (Auto) 0.6 % (0.0-1.8) 03/26/19 13:05 Lymph # 2.2 K/mm3 (1.2-5.4) 03/26/19 13:05 Mcdowell # 0.9 K/mm3 (0.0-0.8) H 03/26/19 13:05 Eos # 0.0 K/mm3 (0.0-0.4) 03/26/19 13:05 Baso # 0.1 K/mm3 (0.0-0.1) 03/26/19 13:05 Seg Neutrophils % 73.3 % (40.0-70.0) H 03/26/19 13:05 Seg Neutrophils # 8.7 K/mm3 (1.8-7.7) H 03/26/19 13:05 Sodium 135 mmol/L (137-145) L 03/24/19 09:43 Potassium 4.3 mmol/L (3.6-5.0) 03/24/19 09:43 Chloride 100.0 mmol/L (98-107) 03/24/19 09:43 Carbon Dioxide 21 mmol/L (22-30) L 03/24/19 09:43 18 mmol/L 03/24/19 09:43 BUN 5 mg/dL (7-17) L 03/24/19 09:43 0.4 mg/dL (0.7-1.2) L 03/24/19 09:43 Estimated GFR > 60 ml/min 03/24/19 09:43 13 % 03/24/19 09:43 Glucose 198 mg/dL (65-100) H 03/24/19 09:43 POC Glucose 198 (70-105) H 03/30/19 18:23 7.7 % (4-6) H 03/29/19 13:56 Calcium 8.0 mg/dL (8.4-10.2) L 03/24/19 09:43 Magnesium 4.50 mg/dL (1.7-2.3) H 03/24/19 03:12 < 0.20 mg/dL (0.1-1.2) 03/24/19 09:43 AST 32 units/L (5-40) 03/24/19 09:43 ALT 15 units/L (7-56) 03/24/19 09:43 125 units/L (35-129) 03/24/19 09:43 7.7 g/dL (6.3-8.2) 03/24/19 09:43 3.2 g/dL (3.9-5) L 03/24/19 09:43 0.7 % 03/24/19 09:43 RPR Nonreactive (Nonreactive) 03/23/19 15:42 Blood Type O POSITIVE 03/26/19 13:05 Antibody Screen Negative 03/26/19 13:05 Active Medications - Current Medications Current Medications: Generic Name Dose Route Start Last Admin Trade Name Freq PRN Reason Stop Dose Admin Acetaminophen 650 mg 03/26/19 15:39 Tylenol PO Q4H PRN Fever >100.5/EMMANUEL Acetaminophen/Hydrocodone Bitart 1 each 03/26/19 15:39 03/30/19 08:16 Roy 5/325 PO 1 each Q6H PRN Administration Pain, Moderate (4-6) Dextrose 50 ml 03/23/19 17:05 D50w (25gm) Syringe IV PRN PRN Hypoglycemia Ephedrine Sulfate 10 mg 03/23/19 16:54 Ephedrine Sulfate IV Q2M PRN Hypotension Fentanyl 100 mcg 03/23/19 16:54 Sublimaze IV Q2H PRN Labor Pain Ferrous Sulfate 325 mg 03/27/19 10:00 03/30/19 09:47 Feosol PO 325 mg QDAY WILNER Administration Guaifenesin 100 mg 03/24/19 17:56 03/29/19 22:46 Robitussin PO 100 mg Q6H PRN Administration Cough Hydralazine HCl 10 mg 03/25/19 10:30 Apresoline PO Q6H PRN Blood Pressure Hydrocortisone Acetate 25 mg 03/26/19 15:39 Anucort-Hc [place] BID PRN Hemorrhoids Hydromorphone HCl 0.5 mg 03/26/19 12:57 03/26/19 21:04 Dilaudid IV 0.5 mg Q4H PRN Administration breakthrough pain > 7/10 Oxytocin/Sodium Chloride 20 units in 1,000 mls @ 125 mls/hr 03/23/19 17:00 Pitocin/Ns 20 Unit/1000ml Drip IV DIRECT WILNER Oxytocin/Sodium Chloride 30 units in 500 mls @ 1 mls/hr 03/23/19 17:00 Pitocin/Ns 30 Unit/500ml IV TITR WILNER Protocol 1 MILLIUNITS/MIN Lactated Ringer's 1,000 mls @ 125 mls/hr 03/23/19 18:00 03/26/19 19:45 Lactated Ringers IV 125 mls/hr DIRECT WILNER Administration Oxytocin/Sodium Chloride 20 units in 1,000 mls @ 0 mls/hr 03/26/19 13:00 Pitocin/Ns 20 Unit/1000ml Drip IV TITR WILNER As Directed Oxytocin/Sodium Chloride 20 units in 1,000 mls @ 250 mls/hr 03/26/19 16:00 Pitocin/Ns 20 Unit/1000ml Drip IV DIRECT WILNER Dextrose/Lactated Ringer's 1,000 mls @ 125 mls/hr 03/26/19 16:00 03/27/19 03:57 D5lr IV 125 mls/hr DIRECT WILNER Administration Ibuprofen 800 mg 03/26/19 15:39 03/30/19 17:05 Ibuprofen PO 800 mg Q6H PRN Administration Pain, Mild (1-3) Insulin Human Lispro 0 unit 03/29/19 16:30 03/30/19 18:25 Humalog SUB-Q Not Given ACHS WILNER Protocol Insulin Human NPH 10 unit 03/28/19 17:00 03/30/19 17:08 Humulin N SUB-Q Not Given QPMDIAB [facility]ILNER Insulin Human NPH 12 unit 03/30/19 19:43 Humulin N SUB-Q QAMDIAB [facility] Insulin Human Regular 0 units 03/30/19 22:00 Humulin R SUB-Q ACHS [facility] Protocol Ketorolac Tromethamine 15 mg 03/26/19 15:39 Toradol IV 03/31/19 15:38 Q6H PRN Pain, Mild (1-3) Ketorolac Tromethamine 30 mg 03/26/19 15:39 03/27/19 05:46 Toradol IV 03/31/19 15:38 30 mg Q6H PRN Administration Pain, Moderate (4-6) Magnesium Hydroxide 30 ml 03/29/19 13:00 03/30/19 17:08 Milk Of Magnesia PO Not Given Q6H [facility] Morphine Sulfate 2 mg 03/26/19 15:39 Morphine IV Q4H PRN Pain, Moderate (4-6) Morphine Sulfate 4 mg 03/26/19 15:39 Morphine IV Q4H PRN Pain , Severe (7-10) Multi-Ingredient Ointment 1 applic 03/26/19 15:39 Lansinoh TP PRN PRN dryness/cracking Multivitamins/Iron/Calcium 1 each 03/27/19 10:00 03/30/19 09:47 Vitamin PO 1 each QDAY [facility] Administration Naloxone HCl 0.1 mg 03/26/19 15:39 Narcan 0.4 Mg/1 Ml IV Q2MIN PRN Res Rate </= 8 or 02 SAT < 92% Ondansetron HCl 4 mg 03/26/19 12:57 Zofran IV Q8H PRN Nausea And Vomiting Oxycodone/Acetaminophen 1 tab 03/26/19 15:39 03/30/19 17:04 Percocet 5/325 PO 1 tab Q6H PRN Administration Pain, Moderate (4-6) Promethazine HCl 25 mg 03/26/19 12:57 Phenergan PO Q6H PRN Nausea And Vomiting Promethazine HCl 25 mg 03/26/19 12:57 Phenergan [place] Q6H PRN Nausea And Vomiting Senna 17.2 mg 03/26/19 15:39 Senokot PO QHS PRN Constipation Simethicone 80 mg 03/26/19 15:39 Mylicon PO Q6H PRN Gas pain Terbutaline Sulfate 0.25 mg 03/23/19 16:54 Brethine IVP ONCE PRN Hyperstimulation/Hypertonicity Witch Sandra/Glycerin 1 each 03/26/19 15:39 Tucks Pad TP PRN PRN Hemorrhoids/cleansing/soothing Nutrition/Malnutrition Assess - Dietary Evaluation Nutrition/Malnutrition Findings: Nutrition Notes Start: 03/30/19 13:09 Freq: Status: Active Protocol: Document 03/30/19 13:09 OH (Rec: 03/30/19 13:18 OH [id number]) Nutrition Notes Need for Assessment generated from: MD Order Initial or Follow up Assessment Current Diagnosis Diabetes Current Diet GDM Labs/Tests hgba1c 7.7 Pertinent Medications Reviewed Height 5 ft 5 in Weight 99 kg [place] Body Weight (kg) 56.81 BMI 36.3 Intake Prior to Admission Good Weight Status Obese Subjective/Other Information md consult. Pt. verbalized she has been diabetic all her life. Pt. is aware of monitoring dietary intake to maintain bloodsugar levels wnl . Pt. 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 Pt. will be returning to her vendor representatives upon completing all post follow up. Pt. reports she checks her bloodsugar levels at home and is aware of how important monitoring bloodsugar levels are to tank terminal gauger health. 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 Percent of energy/protein needs met: >75/75% Burn Absent Trauma Absent GI Symptoms None Food Allergy No Current % PO Good (75-100%) #1 Nutrition Diagnosis Altered nutrition-related laboratory values Etiology /hx DM As Evidenced by Signs and Symptoms hgba1c 7.7 Is patient on ventilator? No Is Patient Ambulatory and/or Out of Bed Yes REE-([place]. or-ambulatory/OOB) [ 2256.644 NUTR.[id number]] Kcal/Kg value to use for calculation 20 Approximate Energy Requirements Using 1980 kcal/Kg Calculation Used for Recommendations Kcal/kg Additional Notes PRO: 0.8-1.0 g/kg (57 kg IBW) 46-57 G/PRO/D FLUID 1 mL/kcal Nutrition Intervention Change Diet Order: Cont GDM Teaching Recipient Patient Learning Readiness Good Teaching Methods Discussion Response to Teaching Reinforcement needed Education Handouts Provided Reviewed with patient the importance of monitoring daily intake of simple CHOs/ packaged foods. Reinforced protein dense foods such as lean chicken/fish/pork. Enc pt to consume carbohydrate sources with protein/fat to maintain bloodsugar levels wnl . Educ pt on tank terminal gauger effects of poor management of diabetes. Enc pt to follow up w/vendor representatives and management of HTN prn. Barriers to Learning Motivation,Cultural,Financial, Environmental,Social Revisit per MD consult or patient Sign Off request:
[2019-03-30] MEDS ORDERED: HumuLIN R SUB-Q SCH (22:00)
[2019-03-31] MEDS: IBUPROFEN PO PRN ×2 (00:37→10:13)
--- NOTE | 2019-03-31 07:57 | Progress Note ---
Assessment and Plan A/P POD 5 s/p csec for IUGR, no end diastolic flow, nrfht obesity type 2 DM -uncontrolled, episode of hypoglycemia appreciate medicine consult and chagnges to Insulin mgt continue present mgt after control of glucose will candidate for discharge Subjective - Subjective Date of service: 03/31/19 Principal diagnosis: s/p primary section at 34 wks, IUGR, Insulin dependent diabetes Interval history: 24 yo EDC 05/07/19 at 33+ weeks admitted for absent End diastolic flow. She is a patietn with DM type 1 on insulin regimen. She also has cHTN on no meds. She has HSV2 aware. She alos has IUGR 5% followed by M. Patient reports: appetite normal, voiding normally, pain well controlled, flatus, ambulating normally : doing well Objective - Vital Signs Latest vital signs: Vital Signs Temp Pulse Resp BP Pulse Ox 03/31/19 00:37 18 03/31/19 00:00 98.6 F 78 16 101/78 03/30/19 22:32 18 03/30/19 16:49 97.8 F 90 18 131/78 99 03/30/19 08:56 144/91 Intake and Output 03/30/19 03/30/19 03/31/19 15:59 23:59 07:59 Intake Total 1600 2040 300 Balance 1600 2040 300 Intake: Oral 1600 2040 Intake, Free Water 300 Other: Total, Intake Amount 800 200 Voiding Method Toilet Toilet # Voids 1 1 Void 1 1 # Bowel Movements 1 Weight 99 kg - Exam Breasts: Present: normal Cardiovascular: Present: Regular rate, Normal S1 Lungs: Present: Clear to auscultation, Normal air movement Abdomen: Present: normal appearance, soft, normal bowel sounds. Absent: distention, tenderness, guarding Vulva: both: normal Uterus: Present: normal, firm, fundal height below umbilicus. Absent: bogginess Extremities: Present: normal Deep Tendon Reflex Grade: Normal +2 - Labs Labs: Abnormal lab results 03/30/19 03/30/19 03/30/19 Range/Units 11:58 16:47 18:23 POC Glucose 129 H 62 L 198 H (70-105) 03/30/19 03/31/19 Range/Units 22:27 06:46 POC Glucose 176 H 146 H (70-105)
[2019-03-31] MEDS: MILK OF MAGNESIA PO SCH ×2 (08:06→08:07)
[2019-03-31] MEDS: HumaLOG SUB-Q SCH (08:27)
[2019-03-31] MEDS: PERCOCET 5/325 PO PRN (10:05)
[2019-03-31] MEDS: FEOSOL PO SCH (10:15)
[2019-03-31] MEDS: PRENATAL VITAMIN PO SCH (10:15)
--- NOTE | 2019-03-31 10:22 | Progress Note ---
Assessment and Plan Assessment and plan: Diabetes Mellitus Type 1; Patient's blood sugars last 24 hours have been less than 200 Patient did not need any insulin last 24 hours Advised diabetes diet, diabetic education Home health nurse for disease monitoring Patient is medically stable for discharge Does not need any long-acting insulin at this point Patient may be encouraged to check blood sugars before meals and at bedtime and sliding scale coverage as needed Strict Diabetic diet. 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 Discussed with the patient's nurse Medically stable for discharge. Sign off ,reconsult us as needed. History Interval history: Patient's blood sugars last 24 hours have been less than 200 Patient did not need any long-acting insulin No new complaints Vital signs noted Hospitalist Physical - Constitutional Vitals: Temp Pulse Resp BP Pulse Ox 98.6 F 78 18 101/78 99 03/31/19 00:00 03/31/19 00:00 03/31/19 00:37 03/31/19 00:00 03/30/19 16:49 General appearance: Present: no acute distress, well-nourished, obese - EENT Eyes: Present: PERRL, EOM intact - Neck Neck: Present: supple, normal ROM - Respiratory Respiratory effort: normal Respiratory: negative: rales, rhonchi, wheezing - Cardiovascular Rhythm: regular Heart Sounds: Present: S1 & S2 - Extremities Extremities: no ischemia, No edema - Abdominal General gastrointestinal: soft, non-tender, non-distended, normal bowel sounds - Integumentary Integumentary: Present: clear, warm - Psychiatric Psychiatric: appropriate mood/affect, cooperative - Neurologic Neurologic: CNII-XII intact, moves all extremities Results - Labs CBC & Chem 7: 03/27/19 06:04 03/24/19 09:43 Labs: Laboratory Last Values WBC 11.9 K/mm3 (4.5-11.0) H 03/26/19 13:05 RBC 3.76 M/mm3 (3.65-5.03) 03/26/19 13:05 Hgb 9.5 gm/dl (10.1-14.3) L 03/27/19 06:04 Hct 29.9 % (30.3-42.9) L 03/27/19 06:04 MCV 87 fl (79-97) 03/26/19 13:05 MCH 27 pg (28-32) L 03/26/19 13:05 MCHC 31 % (30-34) 03/26/19 13:05 RDW 18.3 % (13.2-15.2) H 03/26/19 13:05 Plt Count 297 K/mm3 (140-440) 03/26/19 13:05 Lymph % (Auto) 18.5 % (13.4-35.0) 03/26/19 13:05 [place] % (Auto) 7.4 % (0.0-7.3) H 03/26/19 13:05 Eos % (Auto) 0.2 % (0.0-4.3) 03/26/19 13:05 Baso % (Auto) 0.6 % (0.0-1.8) 03/26/19 13:05 Lymph # 2.2 K/mm3 (1.2-5.4) 03/26/19 13:05 [place] # 0.9 K/mm3 (0.0-0.8) H 03/26/19 13:05 Eos # 0.0 K/mm3 (0.0-0.4) 03/26/19 13:05 Baso # 0.1 K/mm3 (0.0-0.1) 03/26/19 13:05 Seg Neutrophils % 73.3 % (40.0-70.0) H 03/26/19 13:05 Seg Neutrophils # 8.7 K/mm3 (1.8-7.7) H 03/26/19 13:05 Sodium 135 mmol/L (137-145) L 03/24/19 09:43 Potassium 4.3 mmol/L (3.6-5.0) 03/24/19 09:43 Chloride 100.0 mmol/L (98-107) 03/24/19 09:43 Carbon Dioxide 21 mmol/L (22-30) L 03/24/19 09:43 18 mmol/L 03/24/19 09:43 BUN 5 mg/dL (7-17) L 03/24/19 09:43 0.4 mg/dL (0.7-1.2) L 03/24/19 09:43 Estimated GFR > 60 ml/min 03/24/19 09:43 13 % 03/24/19 09:43 Glucose 198 mg/dL (65-100) H 03/24/19 09:43 POC Glucose 109 (70-105) H 03/31/19 08:15 7.7 % (4-6) H 03/29/19 13:56 Calcium 8.0 mg/dL (8.4-10.2) L 03/24/19 09:43 Magnesium 4.50 mg/dL (1.7-2.3) H 03/24/19 03:12 < 0.20 mg/dL (0.1-1.2) 03/24/19 09:43 AST 32 units/L (5-40) 03/24/19 09:43 ALT 15 units/L (7-56) 03/24/19 09:43 125 units/L (35-129) 03/24/19 09:43 7.7 g/dL (6.3-8.2) 03/24/19 09:43 3.2 g/dL (3.9-5) L 03/24/19 09:43 0.7 % 03/24/19 09:43 RPR Nonreactive (Nonreactive) 03/23/19 15:42 Blood Type O POSITIVE 03/26/19 13:05 Antibody Screen Negative 03/26/19 13:05 Active Medications - Current Medications Current Medications: Generic Name Dose Route Start Last Admin Trade Name Freq PRN Reason Stop Dose Admin Acetaminophen 650 mg 03/26/19 15:39 Tylenol PO Q4H PRN Fever >100.5/EMMANUEL Acetaminophen/Hydrocodone Bitart 1 each 03/26/19 15:39 03/30/19 22:32 [place] 5/325 PO 1 each Q6H PRN Administration Pain, Moderate (4-6) Dextrose 50 ml 03/23/19 17:05 D50w (25gm) Syringe IV PRN PRN Hypoglycemia Ephedrine Sulfate 10 mg 03/23/19 16:54 Ephedrine Sulfate IV Q2M PRN Hypotension Fentanyl 100 mcg 03/23/19 16:54 Sublimaze IV Q2H PRN Labor Pain Ferrous Sulfate 325 mg 03/27/19 10:00 03/31/19 10:15 Feosol PO 325 mg QDAY WILNER Administration Guaifenesin 100 mg 03/24/19 17:56 03/29/19 22:46 Robitussin PO 100 mg Q6H PRN Administration Cough Hydralazine HCl 10 mg 03/25/19 10:30 Apresoline PO Q6H PRN Blood Pressure Hydrocortisone Acetate 25 mg 03/26/19 15:39 Anucort-Hc OH BID PRN Hemorrhoids Hydromorphone HCl 0.5 mg 03/26/19 12:57 03/26/19 21:04 Dilaudid IV 0.5 mg Q4H PRN Administration breakthrough pain > 7/10 Oxytocin/Sodium Chloride 20 units in 1,000 mls @ 125 mls/hr 03/23/19 17:00 Pitocin/Ns 20 Unit/1000ml Drip IV DIRECT WILNER Oxytocin/Sodium Chloride 30 units in 500 mls @ 1 mls/hr 03/23/19 17:00 Pitocin/Ns 30 Unit/500ml IV TITR WILNER Protocol 1 MILLIUNITS/MIN Lactated Ringer's 1,000 mls @ 125 mls/hr 03/23/19 18:00 03/26/19 19:45 Lactated Ringers IV 125 mls/hr DIRECT WILNER Administration Oxytocin/Sodium Chloride 20 units in 1,000 mls @ 0 mls/hr 03/26/19 13:00 Pitocin/Ns 20 Unit/1000ml Drip IV TITR WILNER As Directed Oxytocin/Sodium Chloride 20 units in 1,000 mls @ 250 mls/hr 03/26/19 16:00 Pitocin/Ns 20 Unit/1000ml Drip IV DIRECT WILNER Dextrose/Lactated Ringer's 1,000 mls @ 125 mls/hr 03/26/19 16:00 03/27/19 03:57 D5lr IV 125 mls/hr DIRECT WILNER Administration Ibuprofen 800 mg 03/26/19 15:39 03/31/19 10:13 Ibuprofen PO 800 mg Q6H PRN Administration Pain, Mild (1-3) Insulin Human Lispro 0 unit 03/29/19 16:30 03/31/19 08:27 Humalog SUB-Q Not Given ACHS [facility] Protocol Ketorolac Tromethamine 15 mg 03/26/19 15:39 Toradol IV 03/31/19 15:38 Q6H PRN Pain, Mild (1-3) Ketorolac Tromethamine 30 mg 03/26/19 15:39 03/27/19 05:46 Toradol IV 03/31/19 15:38 30 mg Q6H PRN Administration Pain, Moderate (4-6) Magnesium Hydroxide 30 ml 03/29/19 13:00 03/31/19 08:07 Milk Of Magnesia PO Not Given Q6H WILNER Morphine Sulfate 2 mg 03/26/19 15:39 Morphine IV Q4H PRN Pain, Moderate (4-6) Morphine Sulfate 4 mg 03/26/19 15:39 Morphine IV Q4H PRN Pain , Severe (7-10) Multi-Ingredient Ointment 1 applic 03/26/19 15:39 Lansinoh TP PRN PRN dryness/cracking Multivitamins/Iron/Calcium 1 each 03/27/19 10:00 03/31/19 10:15 Vitamin PO 1 each QDAY WILNER Administration Naloxone HCl 0.1 mg 03/26/19 15:39 Narcan 0.4 Mg/1 Ml IV Q2MIN PRN Res Rate </= 8 or 02 SAT < 92% Ondansetron HCl 4 mg 03/26/19 12:57 Zofran IV Q8H PRN Nausea And Vomiting Oxycodone/Acetaminophen 1 tab 03/26/19 15:39 03/31/19 10:05 Percocet 5/325 PO 1 tab Q6H PRN Administration Pain, Moderate (4-6) Promethazine HCl 25 mg 03/26/19 12:57 Phenergan PO Q6H PRN Nausea And Vomiting Promethazine HCl 25 mg 03/26/19 12:57 Phenergan [place] Q6H PRN Nausea And Vomiting Senna 17.2 mg 03/26/19 15:39 Senokot PO QHS PRN Constipation Simethicone 80 mg 03/26/19 15:39 Mylicon PO Q6H PRN Gas pain Terbutaline Sulfate 0.25 mg 03/23/19 16:54 Brethine IVP ONCE PRN Hyperstimulation/Hypertonicity Witch Sandra/Glycerin 1 each 03/26/19 15:39 Tucks Pad TP PRN PRN Hemorrhoids/cleansing/soothing Nutrition/Malnutrition Assess - Dietary Evaluation Nutrition/Malnutrition Findings: Nutrition Notes Start: 03/30/19 13:09 Freq: Status: Active Protocol: Document 03/30/19 13:09 [place] (Rec: 03/30/19 13:18 AL [id number]) Nutrition Notes Need for Assessment generated from: MD Order Initial or Follow up Assessment Current Diagnosis Diabetes Current Diet GDM Labs/Tests hgba1c 7.7 Pertinent Medications Reviewed Height 5 ft 5 in Weight 99 kg [place] Body Weight (kg) 56.81 BMI 36.3 Intake Prior to Admission Good Weight Status Obese Subjective/Other Information md consult. Pt. verbalized she has been diabetic all her life. Pt. is aware of monitoring dietary intake to maintain bloodsugar levels wnl . 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 Pt. will be returning to her airport operations supervisor upon completing all post follow up. Pt. reports she checks her bloodsugar levels at home and is aware of how important monitoring bloodsugar levels are to shake backboard [employer] health. 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 Percent of energy/protein needs met: >75/75% Burn Absent Trauma Absent GI Symptoms None Food Allergy No Current % PO Good (75-100%) #1 Nutrition Diagnosis Altered nutrition-related laboratory values Etiology /hx DM As Evidenced by Signs and Symptoms hgba1c 7.7 Is patient on ventilator? No Is Patient Ambulatory and/or Out of Bed Yes REE-([facility]-ambulatory/OOB) [ 2256.644 NUTR.MSJOOB] Kcal/Kg value to use for calculation 20 Approximate Energy Requirements Using 1980 kcal/Kg Calculation Used for Recommendations Kcal/kg Additional Notes PRO: 0.8-1.0 g/kg (57 kg IBW) 46-57 G/PRO/D FLUID 1 mL/kcal Nutrition Intervention Change Diet Order: Cont GDM Teaching Recipient Patient Learning Readiness Good Teaching Methods Discussion Response to Teaching Reinforcement needed Education Handouts Provided Reviewed with patient the importance of monitoring daily intake of simple CHOs/ packaged foods. Reinforced protein dense foods such as lean chicken/fish/pork. Enc pt to consume carbohydrate sources with protein/fat to maintain bloodsugar levels wnl . Educ pt on nursing home effects of poor management of diabetes. Enc pt to follow up w/airport operations supervisor and management of HTN prn. Barriers to Learning Motivation,Cultural,Financial, Environmental,Social Revisit per MD consult or patient Sign Off request:
--- NOTE | 2019-03-31 13:06 | Event Note ---
Date: 03/31/19 reviewed IM recommnedations. recommended home health for assistnace with sugars. APpt with IM in 2-3 days and Endicrinologist in 1 weeks. D/c home with f/u in 1 weeks
--- NOTE | 2019-03-31 13:08 | Discharge Summary ---
Providers - Providers Date of Admission: 03/23/19 14:19 Date of discharge: 03/31/19 Attending physician: AUNG HUGGINS MD 03/29/19 10:07 Consult to Physician [CONS] Routine Comment: Consulting Provider: BLAINE SYLVESTER Physician Instructions: Reason For Exam: insulin-dependent diabetes, uncontrolled 03/30/19 08:39 Consult to Dietitian/Nutrition [CONS] Routine Physician Instructions: Reason For Exam: type 1 dm , uncontrolled, obesity Reason for Consult: Diet education 03/31/19 11:29 Consult to Case Management [CONS] Routine Services Needed at Discharge: Home Health Services Notified:: none Primary care physician: AUNG HUGGINS MD Hospitalization Reason for admission: induction of labor Delivery: Procedure: section, primary low transverse Episiotomy: none Laceration: none Incision: normal, dry, intact complications: none Discharge diagnosis: IUP at term delivered baby: male Hospital course: Patient had a csec for IUGR no end diastolic flow and nrfht. Assistance from IM gathered for uncontrolled DM. Regimen created by IM. Patient will be d/c home with follow up with IM in 2-3 days with Endocrinology appt in 1 week. Condition at discharge: Good Disposition: DC-01 TO HOME OR SELFCARE Plan - Discharge Medications Prescriptions: Ferrous Sulfate [Feosol 325 MG tab] 325 mg PO BID #60 tablet Ibuprofen [Motrin] 600 mg PO Q8H PRN #30 tablet PRN Reason: Pain oxyCODONE /ACETAMINOPHEN [Percocet 5/325] 1 tab PO Q6HR PRN #30 tablet PRN Reason: Pain - Provider Discharge Summary Activity: routine, no sex for 6 weeks, no strenuous exercise Diet: routine Instructions: routine Additional instructions: [] Smoking cessation referral if applicable(refer to patient education folder for contact #) [] Refer to [facility] Booklet Call your doctor immediately for: * Fever > 100.5 * Heavy vaginal bleeding ( >1 pad per hour) * Severe persistent headache * Shortness of breath * Reddened, hot, painful area to leg or breast * Drainage or odor from incision. * Keep incision clean and dry at all times and follow doctor's instructions regarding bathing/showering - Follow up plan Follow up: AUNG HUGGINS MD [Primary Care Provider] - 7 Days
[2019-03-31 14:58] VITALS: BP 154/96
== END 2019-03-31 16:00 | disposition home or self-care (01) | DRG 786 ==
LOC: LD 14:19 → OB 03-26 18:11
PROVIDERS: ADMIT Obstetrics & Gynecology; ATTEND Obstetrics & Gynecology
PROC: 10D00Z1 Extraction of Products of Conception, Low, Open Approach (ICD-10-PCS; principal; 2019-03-26)
PROC: 3E0234Z Introduction of Serum, Toxoid and Vaccine into Muscle, Percutaneous Approach (ICD-10-PCS; 2019-03-27)
DX: O36.5930 Maternal care for other known or suspected poor fetal growth, third trimester, not applicable or unspecified (principal); O60.14X0 Preterm labor third trimester with preterm delivery third trimester, not applicable or unspecified; D62 Acute posthemorrhagic anemia; O10.92 Unspecified pre-existing hypertension complicating childbirth; O99.824 Streptococcus B carrier state complicating childbirth; O61.9 Failed induction of labor, unspecified; O99.02 Anemia complicating childbirth; O76 Abnormality in fetal heart rate and rhythm complicating labor and delivery; O99.214 Obesity complicating childbirth; E66.9 Obesity, unspecified; O24.92 Unspecified diabetes mellitus in childbirth; Z37.0 Single live birth; Z3A.33 33 weeks gestation of pregnancy; Z79.899 Other long term (current) drug therapy; Z91.14 Patient's other noncompliance with medication regimen; Z23 Encounter for immunization
CPT/HCPCS: 36415; 80053; 82962; 83036; 83735; 85014; 85018; 85025; 85027; 86592; 86850; 86900; 86901; 88307; G0378; J0690; J0702; J1170; J1815; J1885; J2590; J2765; J3010; J3105; J3475; J7120; J7121